=== PATIENT | male | born 1965 | race Caucasian/White ===

== ENCOUNTER 2019-03-12 08:45 | Outpatient (CLI) | payer OTHER, SELFPAY ==
--- NOTE | 2019-03-12 15:44 | WPDSIXMINUTE ---
Six Minute Walk DATE OF SERVICE: 03/12/2019 REQUESTING: Dr. Marquez REASON FOR TESTING: Exertional dyspnea SIX MINUTE WALK This test was conducted per ATS guidelines. Initial saturation was 96% and pulse was 109. There was no desaturation while walking 6 minutes. The pulse decreased to the 60 range briefly, then returned to the 110s. Distance walked was 700 feet/213 meters without stopping. IMPRESSION: Normal walk study without need for supplemental oxygen. Resting tachycardia is present, and maximum heart rate was 124. Distance walked is less than expected for age. Karissa Marquez MD Niox is 7 ppb, normal. No evidence of increased airway inflammation.
== END 2019-03-12 08:46 | disposition home or self-care (01) ==
PROVIDERS: PCP Family Medicine; Visit Provider Internal Medicine Critical Care Medicine
DX: J44.9 Chronic obstructive pulmonary disease, unspecified (principal)
CPT/HCPCS: 94618; 95012

== ENCOUNTER 2019-04-12 07:53 | Outpatient (CLI) | payer OTHER, SELFPAY ==
[2019-04-12 08:16] LABS: Basophils Absolute Auto 0.1 K/mm3 (0.0-0.1); Basophils Percent Auto 0.5 % (0.2-1.2); Eosinophils Absolute Auto 0.4 K/mm3 (0-0.3); Eosinophils Percent Auto 4.2 % (0-4.4); Hematocrit 38.6 % (42.0-52.0); Hemoglobin 13.3 g/dL (14.0-18.0); Immature Granulocyte Absolute 0.04 K/mm3 (0.00-0.031); Immature Granulocyte Percent A 0.4 % (0-0.5); Lymphocytes Absolute Auto 2.07 K/mm3 (0.9-3.2); Lymphocytes Percent Auto 22.1 % (18.3-44.2); Mean Corpuscular HGB Conc 34.5 g/dl (32-36); Mean Corpuscular Hemoglobin 31.8 pg (26-34); Mean Corpuscular Volume 92.3 fl (80-100); Mean Platelet Volume 9.6 fl (7.4-10.4); Monocytes Absolute Auto 0.4 K/mm3 (0.1-0.6); Monocytes Percent Auto 4.6 % (2.6-8.5); Neutrophils Absolute Auto 6.4 K/mm3 (1.3-6.7); Neutrophils Percent Auto 68.2 % (45.5-73.1); Platelet Count Result 191 k/mm3 (150-375); Red Blood Count 4.18 M/mm3 (4.6-6.20); Red Cell Distribution Width 13.3 % (11.5-14.5); White Blood Count 9.4 K/mm3 (4.5-10.0)
[2019-04-12 08:30] LABS: Cholesterol 150 mg/dL (0-200); HDL Direct 34 mg/dL; Triglycerides 186 mg/dL (<150)
[2019-04-12 08:32] LABS: Alanine Aminotransferase 15 U/L (4-50); Albumin Level 4.3 g/dL (3.5-5.1); Alkaline Phosphatase 47 U/L (38-126); Aspartate Amino Transferase 17 U/L (17-59); Bilirubin,Total 0.6 mg/dL (0.2-1.3); Blood Urea Nitrogen 12 mg/dL (9-20); Calcium 9.4 mg/dL (8.4-10.2); Carbon Dioxide 24 mmol/L (22-30); Chloride 103 mmol/L (98-107); Estimated Glomerular Filt Rate > 60; Glucose 136 mg/dL (75-110); Potassium 3.9 mmol/L (3.4-5.0); Sodium 137 mmol/L (137-145)
[2019-04-12 08:45] LABS: LDL Cholesterol Direct 113 mg/dL
[2019-04-12 11:27] LABS: Hemoglobin A1C 6.1 % (<5.7)
== END 2019-04-12 07:54 | disposition home or self-care (01) ==
PROVIDERS: PCP Family Medicine; Visit Provider Internal Medicine Cardiovascular Disease
DX: D64.9 Anemia, unspecified (principal); E11.9 Type 2 diabetes mellitus without complications; E78.5 Hyperlipidemia, unspecified
CPT/HCPCS: 36415; 80053; 80061; 83036; 84443; 85025

== ENCOUNTER 2019-09-14 08:05 | Outpatient (CLI) | payer OTHER, SELFPAY ==
--- NOTE | ~2019-09-14 | US_ITS ---
EXAMINATION: US arterial ankle brachial ind DATE: 09/14/2019 08:45 INDICATION: Lower limb pain. Peripheral vascular disease risk factors of diabetes, hypercholesterolem ia, hypertension and smoking. TECHNIQUE: Segmental pressures and plethysmographic and Doppler waveforms of the brachial and lower e xtremity arteries were obtained. COMPARISON: None. FINDINGS: Right and left brachial artery pressures of 131 mm Hg and 142 mm Hg, respectively, are concordant (no rmal difference <= 30 mmHg). The right ankle-brachial index (LARRY) is 0.99 (normal >= 0.9-1.0). The right great toe-brachial index (TBI) is 0.86 (normal >= 0.65). Arterial Doppler waveforms are triphasic at the right posterior tibia l artery and biphasic at the right dorsalis pedis artery, both with brisk systolic upstrokes. The left LARRY is 1.06. The left TBI is 0.87. Arterial Doppler waveforms are biphasic with brisk systol ic upstrokes at both the left posterior tibial and dorsalis pedis arteries. IMPRESSION: 1. No significant arterial occlusive disease with normal bilateral ABIs and TBIs. Reviewed, dictated and finalized at location A. IMPRESSION: 1. No significant arterial occlusive disease with normal bilateral ABIs and TBI s.
== END 2019-09-14 08:06 | disposition home or self-care (01) ==
PROVIDERS: PCP Family Medicine; Visit Provider Family Medicine
DX: E11.9 Type 2 diabetes mellitus without complications (principal)
CPT/HCPCS: 93922

== ENCOUNTER 2019-10-23 07:34 | Outpatient (CLI) | payer OTHER, SELFPAY ==
[2019-10-23 07:58] LABS: Hematocrit 40.1 % (42.0-52.0); Mean Corpuscular HGB Conc 34.9 g/dl (32-36); Mean Corpuscular Hemoglobin 32.9 pg (26-34); Mean Corpuscular Volume 94.1 fl (80-100); Mean Platelet Volume 9.9 fl (7.4-10.4); Platelet Count Result 207 k/mm3 (150-375); Red Blood Count 4.26 M/mm3 (4.6-6.20); Red Cell Distribution Width 12.8 % (11.5-14.5); White Blood Count 10.5 K/mm3 (4.5-10.0)
[2019-10-23 08:13] LABS: Alanine Aminotransferase 17 U/L (4-50); Albumin Level 4.3 g/dL (3.5-5.1); Alkaline Phosphatase 45 U/L (38-126); Aspartate Amino Transferase 20 U/L (17-59); Bilirubin,Total 0.6 mg/dL (0.2-1.3)
== END 2019-10-23 07:35 | disposition home or self-care (01) ==
PROVIDERS: PCP Family Medicine
DX: F10.21 Alcohol dependence, in remission (principal); R74.8 Abnormal levels of other serum enzymes; R74.0 Nonspecific elevation of levels of transaminase and lactic acid dehydrogenase [LDH]
CPT/HCPCS: 36415; 80076; 82105; 85027

== ENCOUNTER 2019-11-19 07:17 | Outpatient (CLI) | payer OTHER, SELFPAY ==
--- NOTE | ~2019-11-19 | US_ITS ---
EXAMINATION: US right upper quadrant DATE: 11/19/2019 08:25 INDICATION: Elevated liver function tests TECHNIQUE: Multiple grayscale and Doppler ultrasound images of the abdomen were obtained. COMPARISON: 01/09/2018 FINDINGS: Bowel gas obscures visualization of the pancreas. The visualized portions of the pancreas a re unremarkable. The liver demonstrates increased echogenicity, heterogenous echotexture, and decreas ed through transmission. There is liver surface nodularity. Normal hepatopetal flow in the main rikki l vein. A stone is present in the nondistended gallbladder. There is no pericholecystic fluid. The ga llbladder wall thickness measures up to 7 mm. The normal common bile duct measures 4 mm. There was no sonographic Brown sign. IMPRESSION: 1. Liver surface nodularity, consistent with cirrhosis. 2. Cholelithiasis and mild gallbladder wall thickening without pericholecystic fluid or positive sono graphic Brown sign. Wall thickening likely reflects incomplete distention. Correlate for right upper quadrant tenderness and consider nuclear hepatobiliary scan if there is clinical concern for cholecy stitis. Reviewed, dictated and finalized at location A. IMPRESSION: 1. Liver surface nodularity, consistent with cirrhosis. 2. Cholelithiasis and mild gallbladder wall thickening without pericholecystic fluid or positive sonographic Brown sign. Wall thickening likely reflects inco mplete distention. Correlate for right upper quadrant tenderness and consider n uclear hepatobiliary scan if there is clinical concern for cholecystitis.
== END 2019-11-19 07:18 | disposition home or self-care (01) ==
PROVIDERS: PCP Family Medicine
DX: R74.8 Abnormal levels of other serum enzymes (principal); F10.21 Alcohol dependence, in remission; K76.9 Liver disease, unspecified; K80.20 Calculus of gallbladder without cholecystitis without obstruction
CPT/HCPCS: 76705

== ENCOUNTER 2020-01-14 10:02 | Outpatient (CLI) | payer OTHER, SELFPAY ==
--- NOTE | ~2020-01-14 | MR_ITS ---
EXAMINATION: MR brain/brain stem wo/w con DATE: 01/14/2020 11:07 INDICATION: Colloid cyst of the third ventricle. Headache. TECHNIQUE: Magnetic resonance imaging (MRI) of the brain and brainstem was performed without and with 20 mL MultiHance intravenous contrast. Sequences included sagittal and axial T1-weighted FSE, axial diffusion-weighted FS EPI, axial T2*-weighted GRE, axial T2-weighted FLAIR Propeller, and axial T2-we ighted Propeller. Postcontrast sequences included axial, sagittal, and coronal T1-weighted FSE. Appar ent diffusion coefficient (ADC) maps were created. COMPARISON: Head CT 10/10/2018 FINDINGS: There is a 2.5 x 1.5 cm arachnoid cyst posterior to right cerebellar hemisphere. There is a 5 mm nonenhancing mass in the anterior third ventricle. There are scattered areas of nonspecific inc reased T2-weighted signal intensity in the cerebral white matter, which is within normal limits for t he patient's age. There is no acute ischemic infarct or intracranial hemorrhage. The ventricles are n ormal in size. The orbits are normal. There is mucosal thickening in the paranasal sinuses. The masto id air cells are normal. IMPRESSION: 1. Stable 5 mm nonenhancing mass in the anterior third ventricle, consistent with a colloid cyst. Reviewed, dictated and finalized at location B. 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 Stable 5 mm nonenhancing mass in the anterior third ventricle, consistent wi th a colloid cyst.
[2020-01-14 10:40] LABS: Estimated Glomerular Filt Rate > 60
== END 2020-01-14 10:03 | disposition home or self-care (01) ==
LOC: ANHIMG 10:09
PROVIDERS: PCP Family Medicine
DX: Q04.6 Congenital cerebral cysts (principal)
CPT/HCPCS: 70553; A9577

== ENCOUNTER 2020-07-23 09:08 | Outpatient (CLI) | payer OTHER, SELFPAY ==
--- NOTE | ~2020-07-23 | US_ITS ---
US right upper quadrant INDICATION: Cirrhosis PROCEDURE: Realtime right upper abdominal ultrasound. COMPARISON: No prior studies for comparison. FINDINGS: The pancreas is normal without focal mass or pancreatic ductal dilation. Liver echotexture is increased, consistent with fatty infiltration. There is normal directional flow in the portal ve in. There is a gallstone with gallbladder wall thickening Common bile duct measures 3.5 mm. No sonograp hic Brown's sign. Right renal echotexture is normal without hydronephrosis, contour deforming mass o r renal stone. Spleen is upper normal measuring 12.5 cm. IMPRESSION: 1: Cholelithiasis with gallbladder wall thickening. Consider cholecystitis in the appropriate clinica l setting. 2: Hepatic steatosis. Reviewed, dictated and finalized at location A. IMPRESSION: 1: Cholelithiasis with gallbladder wall thickening. Consider cholecystitis in t he appropriate clinical setting. 2: Hepatic steatosis.
== END 2020-07-23 09:09 | disposition home or self-care (01) ==
LOC: ANHIMG 09:10
PROVIDERS: PCP Family Medicine; Visit Provider Internal Medicine Gastroenterology
DX: K76.0 Fatty (change of) liver, not elsewhere classified (principal); K80.20 Calculus of gallbladder without cholecystitis without obstruction
CPT/HCPCS: 76705

== ENCOUNTER 2020-09-16 10:47 | Outpatient (CLI) | payer OTHER, SELFPAY ==
[2020-09-16 11:41] LABS: Hematocrit 40.6 % (42.0-52.0); Hemoglobin 13.9 g/dL (14.0-18.0); Mean Corpuscular HGB Conc 34.2 g/dl (32-36); Mean Corpuscular Hemoglobin 32.7 pg (26-34); Mean Corpuscular Volume 95.5 fl (80-100); Mean Platelet Volume 9.5 fl (7.4-10.4); Platelet Count Result 190 k/mm3 (150-375); Red Blood Count 4.25 M/mm3 (4.6-6.20); Red Cell Distribution Width 13.2 % (11.5-14.5); White Blood Count 11.8 K/mm3 (4.5-10.0)
[2020-09-16 11:52] LABS: Alanine Aminotransferase 17 U/L (4-50); Albumin Level 4.5 g/dL (3.5-5.1); Alkaline Phosphatase 45 U/L (38-126); Aspartate Amino Transferase 22 U/L (17-59); Bilirubin,Total 0.5 mg/dL (0.2-1.3)
[2020-09-16 11:58] LABS: INR 1.5; Prothrombin Time 17.5 Seconds (11.1-14.7)
[2020-09-20 21:43] LABS: Alpha Fetoprotein Tumor Marker 4.2 ng/mL (<6.1)
== END 2020-09-16 10:48 | disposition home or self-care (01) ==
LOC: ANHLAB 10:52
PROVIDERS: PCP Family Medicine; Referring Provider Internal Medicine Cardiovascular Disease; Visit Provider Nurse Practitioner Family
DX: I48.91 Unspecified atrial fibrillation (principal); R93.2 Abnormal findings on diagnostic imaging of liver and biliary tract; K70.30 Alcoholic cirrhosis of liver without ascites
CPT/HCPCS: 36415; 80076; 82105; 85027; 85610

== ENCOUNTER 2020-09-24 08:18 | Outpatient (CLI) | payer OTHER, SELFPAY ==
--- NOTE | ~2020-09-24 | NM_ITS ---
HEPATOBILIARY SCAN Procedure: Hepatobiliary scan performed following IV administration 4.7 mCi Tc 99m Choletec. At 60 m inutes 2.6 mcg CCK administered IV for evaluation of gallbladder ejection fraction. Indication:Ultrasound dated 07/23/2020 Comparison: None Findings: There is normal radiotracer uptake in the liver parenchyma with prompt excretion into the b iliary tract. Gallbladder visualized at 15 minutes. Small bowel visualized at 35 minutes. Normal g allbladder ejection fraction measures 54% (normal 10-90%, but most patients with gallbladder dysfunct ion have GBEF of less than 35%) Impression: 1: Normal hepatobiliary scan. Reviewed, dictated and finalized at location A. Impression: 1: Normal hepatobiliary scan.
== END 2020-09-24 08:19 | disposition home or self-care (01) ==
PROVIDERS: PCP Family Medicine; Visit Provider Nurse Practitioner Family
DX: R93.3 Abnormal findings on diagnostic imaging of other parts of digestive tract (principal)
CPT/HCPCS: 36415; 78227; 85610; A9537; J2805

== ENCOUNTER 2020-12-18 07:45 | Outpatient (RCR) | payer OTHER, SELFPAY ==
[2020-09-24 11:36] LABS: INR 1.4
[2020-10-01 08:50] LABS: INR 1.4; Prothrombin Time 16.9 Seconds (11.1-14.7)
[2020-10-08 08:25] LABS: INR 1.6; Prothrombin Time 18.3 Seconds (11.1-14.7)
[2020-10-15 08:12] LABS: INR 2.2; Prothrombin Time 24.1 Seconds (11.1-14.7)
[2020-10-27 10:19] LABS: INR 2.2; Prothrombin Time 23.7 Seconds (11.1-14.7)
[2020-11-20 08:20] LABS: INR 1.8; Prothrombin Time 20.4 Seconds (11.1-14.7)
[2020-11-26 09:14] LABS: INR 2.3; Prothrombin Time 24.9 Seconds (11.1-14.7)
[2020-12-18 08:25] LABS: INR 2.3; Prothrombin Time 25.1 Seconds (11.1-14.7)
== END 2020-12-23 23:59 | disposition home or self-care (01) ==
LOC: ANHLAB 07:45
PROVIDERS: PCP Family Medicine; Visit Provider Internal Medicine Cardiovascular Disease
DX: I48.91 Unspecified atrial fibrillation (principal)
CPT/HCPCS: 36415; 85610

== ENCOUNTER 2021-04-01 09:07 | Outpatient (RCR) | payer OTHER, SELFPAY ==
[2021-01-08 08:55] LABS: Prothrombin Time 30.3 Seconds (11.1-14.7)
[2021-01-22 10:12] LABS: INR 2.6
[2021-02-12 10:19] LABS: INR 2.8; Prothrombin Time 28.8 Seconds (11.1-14.7)
[2021-02-27 12:01] LABS: INR 3.9; Prothrombin Time 37.1 Seconds (11.1-14.7)
[2021-03-14 12:53] LABS: INR 1.7; Prothrombin Time 19.4 Seconds (11.1-14.7)
[2021-03-25 08:52] LABS: INR 2.7; Prothrombin Time 27.7 Seconds (11.1-14.7)
[2021-04-01 09:53] LABS: INR 2.3; Prothrombin Time 24.1 Seconds (11.1-14.7)
== END 2021-04-08 23:59 | disposition home or self-care (01) ==
LOC: ANHLAB 09:07
PROVIDERS: PCP Family Medicine; Visit Provider Internal Medicine Cardiovascular Disease
DX: I48.91 Unspecified atrial fibrillation (principal)
CPT/HCPCS: 36415; 85610

== ENCOUNTER 2021-04-01 09:11 | Outpatient (CLI) | payer OTHER, SELFPAY ==
[2021-04-01 10:00] LABS: Hemoglobin A1C 5.8 % (<5.7)
[2021-04-01 10:01] LABS: Cholesterol 179 mg/dL (0-200); HDL Direct 27 mg/dL; Triglycerides 183 mg/dL (<150)
[2021-04-01 10:12] LABS: LDL Cholesterol Direct 120 mg/dL
[2021-04-01 10:31] LABS: Prostate Specific Antigen 1.4 ng/mL (< OR = 4.0)
== END 2021-04-01 09:12 | disposition home or self-care (01) ==
PROVIDERS: PCP Family Medicine; Referring Provider Nurse Practitioner Family; Visit Provider Family Medicine
DX: Z12.5 Encounter for screening for malignant neoplasm of prostate (principal); E11.9 Type 2 diabetes mellitus without complications; F10.21 Alcohol dependence, in remission; R74.8 Abnormal levels of other serum enzymes; K74.60 Unspecified cirrhosis of liver
CPT/HCPCS: 36415; 80061; 83036; 84153; 84443; 85610; G0103

== ENCOUNTER 2021-06-09 08:37 | Outpatient (CLI) | payer OTHER, SELFPAY ==
--- NOTE | ~2021-06-09 | US_ITS ---
EXAMINATION: US right upper quadrant DATE: 06/09/2021 09:15 INDICATION: Elevated liver function tests, alcohol abuse, cirrhosis TECHNIQUE: Multiple grayscale and Doppler ultrasound images of the abdomen were obtained. COMPARISON: 07/23/2020 FINDINGS: Bowel gas obscures visualization of the pancreas. The visualized portions of the pancreas a re unremarkable. The liver demonstrates increased echogenicity, heterogenous echotexture, and decreas ed through transmission. There is nodularity of the liver surface. Normal hepatopetal flow in the юлия n portal vein. A stone is present in the nondistended gallbladder. Mild wall thickening of the gallbl adder likely relates to chronic liver disease. The normal common bile duct measures 5 mm. There was n o sonographic Brown sign. IMPRESSION: 1. Cirrhosis. 2. Cholelithiasis. Reviewed, dictated and finalized at location A.
== END 2021-06-09 08:38 | disposition home or self-care (01) ==
PROVIDERS: PCP Family Medicine; Visit Provider Nurse Practitioner Family
DX: R79.89 Other specified abnormal findings of blood chemistry (principal); R74.8 Abnormal levels of other serum enzymes; K74.60 Unspecified cirrhosis of liver; K80.20 Calculus of gallbladder without cholecystitis without obstruction; F10.21 Alcohol dependence, in remission
CPT/HCPCS: 76705

== ENCOUNTER 2021-07-08 11:39 | Outpatient (RCR) | payer OTHER, SELFPAY ==
[2021-04-15 10:49] LABS: INR 1.8; Prothrombin Time 20.5 Seconds (11.1-14.7)
[2021-04-30 09:31] LABS: INR 2.3; Prothrombin Time 24.3 Seconds (11.1-14.7)
[2021-05-21 08:49] LABS: INR 1.1; Prothrombin Time 14.2 Seconds (11.1-14.7)
[2021-06-03 10:00] LABS: INR 2.1; Prothrombin Time 22.7 Seconds (11.1-14.7)
[2021-06-23 09:44] LABS: Hematocrit 42.7 % (42.0-52.0); Hemoglobin 14.6 g/dL (14.0-18.0); Mean Corpuscular HGB Conc 34.2 g/dl (32-36); Mean Corpuscular Hemoglobin 32.7 pg (26-34); Mean Corpuscular Volume 95.5 fl (80-100); Mean Platelet Volume 10.2 fl (7.4-10.4); Platelet Count Result 257 k/mm3 (150-375); Red Blood Count 4.47 M/mm3 (4.6-6.20); Red Cell Distribution Width 13.1 % (11.5-14.5); White Blood Count 11.7 K/mm3 (4.5-10.0)
[2021-06-23 09:54] LABS: INR 1.4; Prothrombin Time 16.4 Seconds (11.1-14.7)
[2021-06-23 10:00] LABS: Alanine Aminotransferase 15 U/L (6-50); Albumin Level 4.4 g/dL (3.5-5.1); Alkaline Phosphatase 51 U/L (38-126); Aspartate Amino Transferase 18 U/L (17-59); Bilirubin,Total 0.5 mg/dL (0.2-1.3)
[2021-07-02 12:04] LABS: INR 1.7; Prothrombin Time 19.2 Seconds (11.1-14.7)
[2021-07-08 12:22] LABS: Prothrombin Time 21.9 Seconds (11.1-14.7)
== END 2021-07-14 23:59 | disposition home or self-care (01) ==
LOC: ANHLAB 11:39
PROVIDERS: PCP Family Medicine; Referring Provider Internal Medicine Gastroenterology; Visit Provider Internal Medicine Cardiovascular Disease
DX: I48.91 Unspecified atrial fibrillation (principal)
CPT/HCPCS: 36415; 80076; 82105; 85027; 85610

== ENCOUNTER 2021-08-21 10:26 | Outpatient (RCR) | payer OTHER, SELFPAY ==
[2021-07-24 10:59] LABS: INR 1.8; Prothrombin Time 20.6 Seconds (11.1-14.7)
[2021-08-07 10:38] LABS: INR 1.1; Prothrombin Time 13.7 Seconds (11.1-14.7)
[2021-08-14 11:18] LABS: INR 1.7; Prothrombin Time 19.6 Seconds (11.1-14.7)
[2021-08-21 11:02] LABS: INR 2.3; Prothrombin Time 24.3 Seconds (11.1-14.7)
== END 2021-10-22 23:59 | disposition home or self-care (01) ==
LOC: ANHLAB 10:26
PROVIDERS: PCP Family Medicine; Visit Provider Internal Medicine Cardiovascular Disease
DX: I48.91 Unspecified atrial fibrillation (principal)
CPT/HCPCS: 36415; 85610

== ENCOUNTER 2021-09-02 07:51 | Outpatient (CLI) | payer OTHER, SELFPAY ==
[2021-09-02 09:22] LABS: Alanine Aminotransferase 13 U/L (6-50); Albumin Level 4.3 g/dL (3.5-5.1); Alkaline Phosphatase 49 U/L (38-126); Anion Gap 10 mmol/L (8-16); Aspartate Amino Transferase 17 U/L (17-59); Bilirubin,Total 0.7 mg/dL (0.2-1.3); Blood Urea Nitrogen 9 mg/dL (9-20); Calcium 9.6 mg/dL (8.4-10.2); Carbon Dioxide 24 mmol/L (22-30); Chloride 104 mmol/L (98-107); Cholesterol 169 mg/dL (0-200); Estimated Glomerular Filt Rate > 60; Glucose 109 mg/dL (65-110); HDL Direct 28 mg/dL; Sodium 138 mmol/L (137-145); Triglycerides 180 mg/dL (<150)
[2021-09-02 09:33] LABS: LDL Cholesterol Direct 98 mg/dL
== END 2021-09-02 07:52 | disposition home or self-care (01) ==
LOC: ANHLAB 07:52
PROVIDERS: PCP Family Medicine; Visit Provider Internal Medicine Cardiovascular Disease
DX: E78.5 Hyperlipidemia, unspecified (principal)
CPT/HCPCS: 36415; 80053; 80061

== ENCOUNTER 2021-09-25 10:38 | Outpatient (CLI) | payer OTHER, SELFPAY ==
[2021-09-25 11:25] LABS: Hemoglobin A1C 5.7 % (<5.7)
[2021-09-25 11:58] LABS: Creatinine Urine 197.8 mg/dL
[2021-09-25 12:02] LABS: MALB Creatinine Ratio 55.6 mg/g (0-30)
== END 2021-09-25 10:39 | disposition home or self-care (01) ==
LOC: ANHLAB 10:40
PROVIDERS: PCP Family Medicine; Visit Provider Family Medicine
DX: E11.9 Type 2 diabetes mellitus without complications (principal)
CPT/HCPCS: 36415; 82043; 83036; 85610

== ENCOUNTER 2021-12-09 11:58 | Outpatient (RCR) | payer OTHER, SELFPAY ==
[2021-09-18 11:01] LABS: INR 3.7; Prothrombin Time 35.2 Seconds (11.1-14.7)
[2021-09-25 11:29] LABS: INR 2.2; Prothrombin Time 23.5 Seconds (11.1-14.7)
[2021-10-13 14:25] LABS: Hematocrit 42.3 % (42.0-52.0); Hemoglobin 14.7 g/dL (14.0-18.0); Mean Corpuscular HGB Conc 34.8 g/dl (32-36); Mean Corpuscular Hemoglobin 33.8 pg (26-34); Mean Corpuscular Volume 97.2 fl (80-100); Mean Platelet Volume 9.3 fl (7.4-10.4); Platelet Count Result 259 k/mm3 (150-375); Red Blood Count 4.35 M/mm3 (4.6-6.20); Red Cell Distribution Width 13.5 % (11.5-14.5); White Blood Count 15.3 K/mm3 (4.5-10.0)
[2021-10-13 14:34] LABS: Alanine Aminotransferase 13 U/L (6-50); Albumin Level 4.5 g/dL (3.5-5.1); Alkaline Phosphatase 47 U/L (38-126); Aspartate Amino Transferase 19 U/L (17-59); Bilirubin,Total 0.6 mg/dL (0.2-1.3)
[2021-10-13 14:38] LABS: Prothrombin Time 22.3 Seconds (11.1-14.7)
[2021-10-17 17:47] LABS: Alpha Fetoprotein Tumor Marker 3.7 ng/mL (<6.1)
[2021-11-06 11:21] LABS: INR 2.3; Prothrombin Time 24.8 Seconds (11.1-14.7)
[2021-12-09 12:43] LABS: INR 2.1; Prothrombin Time 22.5 Seconds (11.1-14.7)
== END 2021-12-17 23:59 | disposition home or self-care (01) ==
LOC: ANHLAB 11:58
PROVIDERS: PCP Family Medicine; Visit Provider Internal Medicine Cardiovascular Disease
DX: Z51.81 Encounter for therapeutic drug level monitoring (principal); Z79.01 Long term (current) use of anticoagulants
CPT/HCPCS: 36415; 80076; 82105; 85027; 85610

== ENCOUNTER 2021-12-09 11:59 | Outpatient (CLI) | payer OTHER, SELFPAY ==
[2021-12-09 12:31] LABS: Hematocrit 42.4 % (42.0-52.0); Hemoglobin 14.6 g/dL (14.0-18.0); Mean Corpuscular HGB Conc 34.4 g/dl (32-36); Mean Corpuscular Hemoglobin 33.6 pg (26-34); Mean Corpuscular Volume 97.5 fl (80-100); Mean Platelet Volume 9.6 fl (7.4-10.4); Platelet Count Result 247 k/mm3 (150-375); Red Blood Count 4.35 M/mm3 (4.6-6.20); Red Cell Distribution Width 12.6 % (11.5-14.5); White Blood Count 11.7 K/mm3 (4.5-10.0)
[2021-12-09 12:42] LABS: Anion Gap 12 mmol/L (8-16); Blood Urea Nitrogen 10 mg/dL (9-20); Calcium 9.2 mg/dL (8.4-10.2); Carbon Dioxide 22 mmol/L (22-30); Chloride 103 mmol/L (98-107); Estimated Glomerular Filt Rate > 60; Glucose 127 mg/dL (65-110); Potassium 3.8 mmol/L (3.4-5.0); Sodium 137 mmol/L (137-145)
== END 2021-12-09 12:00 | disposition home or self-care (01) ==
PROVIDERS: PCP Family Medicine; Visit Provider Internal Medicine Gastroenterology
DX: K70.30 Alcoholic cirrhosis of liver without ascites (principal)
CPT/HCPCS: 36415; 80048; 85027; 85610

== ENCOUNTER 2022-03-05 08:29 | Outpatient (RCR) | payer OTHER, SELFPAY ==
[2021-12-30 10:53] LABS: INR 2.4; Prothrombin Time 25.5 Seconds (11.1-14.7)
[2022-01-26 08:57] LABS: INR 2.1; Prothrombin Time 23.2 Seconds (11.1-14.7)
[2022-03-05 09:54] LABS: INR 1.7; Prothrombin Time 19.7 Seconds (11.1-14.7)
== END 2022-03-30 23:59 | disposition home or self-care (01) ==
LOC: ANHLAB 08:29
PROVIDERS: PCP Family Medicine; Visit Provider Internal Medicine Cardiovascular Disease
DX: Z51.81 Encounter for therapeutic drug level monitoring (principal); Z79.01 Long term (current) use of anticoagulants
CPT/HCPCS: 36415; 85610

== ENCOUNTER 2022-03-10 12:02 | Outpatient (CLI) | payer OTHER, SELFPAY ==
--- NOTE | ~2022-03-10 | CT_ITS ---
EXAMINATION:CT lung screening DATE: 03/10/2022 12:07 INDICATION: Tobacco use. Current smoker with 35 pack year history. TECHNIQUE: Computed tomography (CT) of the chest was performed without intravenous contrast. Automate d exposure control and iterative reconstruction technique were employed. The dose-length product (DLP ) was 418.64 mGy-cm. COMPARISON: Chest CT 08/08/2014 FINDINGS: There is mild emphysema. There is mild atelectasis bilaterally. No pleural effusion. The he art size is normal. There are coronary artery calcifications. No pericardial effusion. There are is a gallstone in the gallbladder, which is normal in size. There is a 1.7 cm mass in the right perinephr ic space. There are multiple old healed left rib fractures. There are bridging endplate osteophytes a t multiple levels in the spine, consistent with diffuse idiopathic skeletal hyperostosis (DISH). IMPRESSION: 1. Lung-RADS category 2: Benign appearance or behavior. Continue annual screening with noncontrast lo w-dose chest CT in 12 months. 2. 1.7 cm mass in the right perinephric space, increased from 0.9 cm on 02/10/17. The differential diag nosis includes benign mass such as peripheral nerve sheath tumor or venous malformation and malignanc y such as sarcoma. Consider CT-guided biopsy. Reviewed, dictated and finalized at location A. 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 Lung-RADS category 2: Benign appearance or behavior. Continue annual screeni ng with noncontrast low-dose chest CT in 12 months. 2. 1.7 cm mass in the right perinephric space, increased from 0.9 cm on 02/10/17. The differential diagnosis includes benign mass such as peripheral nerve sheat h tumor or venous malformation and malignancy such as sarcoma. Consider CT-guid ed biopsy.
== END 2022-03-10 12:03 | disposition home or self-care (01) ==
PROVIDERS: PCP Family Medicine; Visit Provider Nurse Practitioner Family
DX: Z12.2 Encounter for screening for malignant neoplasm of respiratory organs (principal); Z87.891 Personal history of nicotine dependence
CPT/HCPCS: 71271

== ENCOUNTER 2022-03-24 01:31 | Outpatient (CLI) | payer OTHER, SELFPAY ==
[2022-03-23 13:08] VITALS: BMI 42.4
--- NOTE | 2022-03-23 13:08 | PC.NURSE ---
Pre Radiology instructions Report to the outpatient hospital for special care AT 0900 on date 03/24/22. Procedure Time: 1100. YOU MAY BE MONITORED AT HOSPITAL FOR UP TO 4 HOURS AFTER YOUR PROCEDURE. 1-2 visitors will be allowed to accompany the patient into the hospital. ?The visitor will be instructed to remain with patient at all times or MAY BE ASKED TO leave the building due to restrictions.? We will allow the visitor to come back to the postoperative area when patient is ready.? NO children visitors allowed at this time. You and your visitor will be asked to self-screen and do not enter if you have any COVID symptoms. A mask is OPTIONAL within the hospital. Patients are to have no food or drink 6 hours prior to procedure time Driving will be restricted after the procedure, you must have a person to drive you home. Labs will be drawn in preop area and once reviewed, you will be taken to radiology area for procedure. When the procedure is completed, you will be taken to outpatient where you will be monitored for several hours. You may have one visitor in this area. Other than holding anti-coagulants, patient may take other medication(s) as scheduled. Prior to your appointment date patients are instructed to hold anti-coagulants after discussing with ordering provider to stop. If unable to discontinue anti-coagulants please notify radiologist. ? No aspirin or warfarin (Coumadin) for 7 days prior to the procedure. ? No clopidogrel (Plavix), ticagrelor (Brilinta), prasugrel (Effient) or dabigatran (Pradaxa) for 5 days prior to the procedure. ? No rivaroxaban (Xarelto), apixaban (Eliquis), dipyridamole (Aggrenox or Persantine) or cilostazol (Pletal) for 2 days prior to the procedure. Medications to discontinue per physician: WARFARIN Date to take last dose: PT STATES WAS TOLD TO STOP 1 WEEK PRIOR TO PROCEDURE Please leave all valuables, including medications, at home the day of procedure. The hospital will not accept responsibility for valuables. Wear comfortable, loose fitting clothing.? Follow any additional instructions given to you from ordering provider. Telephone instructions given to PT - CHRIS CRUZ and asked if any additional questions and then verbalized understanding. Patient advised to call scheduling provider office or registration scheduling [phone] if any additional questions.
--- NOTE | ~2022-03-24 | CT_ITS ---
EXAMINATION: CT biopsy abdomen percutaneous DATE: 03/24/2022 11:33 INDICATION: Right retroperitoneal mass. TECHNIQUE: The procedure including the risks, benefits, and alternatives was discussed with the patie nt. Risks discussed included bleeding and infection. The patient verbalized understanding of the risk s and agreed to proceed. The skin overlying the right retroperitoneum was prepped and draped in usua l sterile fashion. Anesthetic was administered with 1% lidocaine subcutaneously. A 16 gauge outer n eedle was advanced under CT guidance to the mass. An 18 gauge core biopsy needle was then used to obt ain multiple core biopsy specimens. The mA was adjusted according to patient size. Iterative reconstr uction technique was employed. The dose-length product was 545.05 mGy-cm. The needle was removed and the entry site was cleaned and dressed. There were no immediate complications. FINDINGS: CT images demonstrate the outer needle tip adjacent to a 1.7 cm mass in the right perinephr ic space. IMPRESSION: 1. CT-guided core needle biopsy of a right retroperitoneal mass. Reviewed, dictated and finalized at location A. COVERER
[2022-03-24 09:07] VITALS: BP 132/95; PULSE 87; RESP 18; TEMP 36.2; O2SAT 100
[2022-03-24 09:23] LABS: Mean Platelet Volume 9.7 fl (7.4-10.4); Platelet Count Result 224 k/mm3 (150-375)
[2022-03-24 09:34] LABS: INR 1.2; Prothrombin Time 14.3 Seconds (11.1-14.7)
[2022-03-24 11:35] VITALS: BP 115/71; BP 132/95; PULSE 60; PULSE 87; RESP 18; O2SAT 100; O2SAT 96
[2022-03-24 11:52] LABS: Glucose Point of Care 103 mg/dl (65-105)
[2022-03-24 12:05] VITALS: BP 123/80; PULSE 60; RESP 18; O2SAT 96
[2022-03-24 12:20] VITALS: BP 124/78; PULSE 67; RESP 18; O2SAT 96
[2022-03-24 12:35] VITALS: BP 115/71; PULSE 65; RESP 18; O2SAT 98
== END 2022-03-24 12:55 | disposition home or self-care (01) ==
PROVIDERS: PCP Family Medicine; Referring Provider Nurse Practitioner Family; Visit Provider Radiology Diagnostic Radiology
PROC: BW20ZZZ Computerized Tomography (CT Scan) of Abdomen (ICD-10-PCS; CPT 77012; principal; 2022-03-24 11:00)
DX: R93.89 Abnormal findings on diagnostic imaging of other specified body structures (principal)
CPT/HCPCS: 36415; 49180; 77012; 82948; 85049; 85610; 88305

== ENCOUNTER 2022-04-20 10:39 | Outpatient (CLI) | payer OTHER, SELFPAY ==
[2022-04-20 11:21] LABS: Basophils Absolute Auto 0.1 K/mm3 (0.0-0.1); Basophils Percent Auto 0.6 % (0.2-1.2); Eosinophils Absolute Auto 0.6 K/mm3 (0-0.3); Eosinophils Percent Auto 5.1 % (0-4.4); Hematocrit 44.2 % (42.0-52.0); Hemoglobin 15.5 g/dL (14.0-18.0); Immature Granulocyte Absolute 0.04 K/mm3 (0.00-0.031); Immature Granulocyte Percent A 0.4 % (0-0.5); Lymphocytes Percent Auto 27.6 % (18.3-44.2); Mean Corpuscular HGB Conc 35.1 g/dl (32-36); Mean Corpuscular Hemoglobin 33.4 pg (26-34); Mean Corpuscular Volume 95.3 fl (80-100); Mean Platelet Volume 9.8 fl (7.4-10.4); Monocytes Absolute Auto 0.7 K/mm3 (0.1-0.6); Monocytes Percent Auto 6.5 % (2.6-8.5); Neutrophils Absolute Auto 6.5 K/mm3 (1.3-6.7); Neutrophils Percent Auto 59.8 % (45.5-73.1); Platelet Count Result 248 k/mm3 (150-375); Red Blood Count 4.64 M/mm3 (4.6-6.20); White Blood Count 10.9 K/mm3 (4.5-10.0)
[2022-04-20 11:37] LABS: Alanine Aminotransferase 16 U/L (6-50); Albumin Level 4.7 g/dL (3.5-5.1); Alkaline Phosphatase 50 U/L (38-126); Anion Gap 8 mmol/L (8-16); Aspartate Amino Transferase 18 U/L (17-59); Bilirubin,Total 0.7 mg/dL (0.2-1.3); Blood Urea Nitrogen 8 mg/dL (9-20); Calcium 9.4 mg/dL (8.4-10.2); Carbon Dioxide 22 mmol/L (22-30); Chloride 109 mmol/L (98-107); Estimated Glomerular Filt Rate > 60; Glucose 79 mg/dL (65-110); Lactate Dehydrogenase 129 U/L (120-246); Sodium 139 mmol/L (137-145)
[2022-04-26 17:07] LABS: Alpha Fetoprotein Tumor Marker 3.6 ng/mL (<6.1)
== END 2022-04-20 10:40 | disposition home or self-care (01) ==
LOC: ANHLAB 10:42
PROVIDERS: PCP Family Medicine; Visit Provider Internal Medicine Hematology & Oncology
DX: R19.00 Intra-abdominal and pelvic swelling, mass and lump, unspecified site (principal)
CPT/HCPCS: 36415; 80053; 82105; 83615; 85025; 88184

== ENCOUNTER 2022-05-13 09:13 | Outpatient (CLI) | payer OTHER, SELFPAY ==
--- NOTE | ~2022-05-13 | PE_ITS ---
EXAMINATION: PET skull to mid thigh DATE: 05/13/2022 11:25 INDICATION: Liposarcoma TECHNIQUE: Blood glucose level was 165 mg/dL. 10.181 mCi of 18-fluorodeoxyglucose (18-FDG) was admini stered i.v. Low dose computed tomography (CT) images were acquired from the base of the brain to the proximal thighs for attenuation correction and anatomic localization. Positron emission tomography (P ET) images were acquired in the same distribution beginning 71 minutes after injection. Images includ ing fused PET/CT images were reconstructed in axial, coronal, and sagittal planes. Automated exposure control technique was employed. The dose-length product was 1201.30mGy-cm. COMPARISON: Chest CT dated 03/10/[address] abdomen and pelvis dated 02/10/2017 FINDINGS: Head/neck: There is symmetric increased activity in the oral cavity, lingual tonsils, laryngeal muscles and ocul ar muscles without CT correlate, likely physiologic. Asymmetric FDG avid 10 x 8 mm nodule in the righ t parotid gland with maximal SUV of 7.0 which could represent a lymph node or parotid neoplasm either benign or malignant. No FDG uptake associated with a 1.5 cm subdermal likely sebaceous/epidermoid cy st at the right posterior base of the neck. No other pathologically enlarged cervical lymphadenopathy or suspicious foci of increased FDG uptake in the visualized head or neck. Chest: Minimal atelectasis at the posterior left lung base. No suspicious pulmonary nodules, pneumonia, pulm onary edema, pleural effusion or pneumothorax. Heart size is normal. Small amount of atherosclerotic coronary artery calcification. No pericardial effusion. No pathologically enlarged or abnormally FDG avid thoracic lymphadenopathy. Thoracic aorta is normal in caliber. Abdomen/pelvis/proximal thighs: There is no abnormal FDG uptake or residual discernible soft tissue density at the site of a prior 1. 7 cm biopsied soft tissue density nodule in the right retroperitoneal fat situated between the upper pole of the right kidney and the liver. This suggests a likely inflammatory etiology. Physiologic suzan al accumulation and excretion of FDG activity in the kidneys, bladder and along portions of ureters. Normal degree and heterogenous pattern of increased uptake throughout the liver without radiologic co rrelate or dominant FDG avid lesion. Subtle calcified gallstone at the neck of the otherwise normal g allbladder. The pancreas, spleen and bilateral adrenal glands are normal. Mild to moderate uptake sca ttered throughout the bowels without radiologic correlate, also likely physiologic. Normal appendix. No other abnormal foci of increased FDG uptake or pathologically enlarged lymphadenopathy in the abdo men, pelvis or proximal thighs. Musculoskeletal: No suspicious lytic, blastic or FDG avid bone lesions. IMPRESSION: 1. The previously biopsied 1.5 cm nodular soft tissue density in the retroperitoneal fat cephalad to the right kidney is no longer visualized suggesting an inflammatory etiology. No abnormal FDG uptake in the region of the biopsy to suggest malignancy. 2. Mild to moderate uptake associated with a 10 x 8 mm right parotid lesion most likely a reactive in traparotid lymph node although differential would include parotid neoplasm either benign or malignant . Reviewed, dictated and finalized at location A. IMPRESSION: 1. The previously biopsied 1.5 cm nodular soft tissue density in the retroperit gibson fat cephalad to the right kidney is no longer visualized suggesting an in flammatory etiology. No abnormal FDG uptake in the region of the biopsy to sugg est malignancy. 2. Mild to moderate uptake associated with a 10 x 8 mm right parotid lesion mos t likely a reactive intraparotid lymph node although differential
[2022-05-13 09:38] LABS: Glucose Point of Care 165 mg/dl (65-105)
== END 2022-05-13 09:14 | disposition home or self-care (01) ==
LOC: ANHIMG 09:15
PROVIDERS: PCP Family Medicine; Visit Provider Internal Medicine Hematology & Oncology
DX: C49.9 Malignant neoplasm of connective and soft tissue, unspecified (principal)
CPT/HCPCS: 78815; A9552

== ENCOUNTER 2022-05-20 08:46 | Outpatient (CLI) | payer OTHER, SELFPAY ==
--- NOTE | ~2022-05-20 | MR_ITS ---
EXAMINATION: MR brain/brain stem wo/w con DATE: 05/20/2022 09:50 INDICATION: Colloid cyst. TECHNIQUE: Magnetic resonance imaging (MRI) of the brain and brainstem was performed without and with 20 mL MultiHance intravenous contrast. COMPARISON: Brain MRI 01/14/2020, head CT 10/10/2018 FINDINGS: There is a 5 mm colloid cyst in the anterior third ventricle. There is no acute ischemic in farct or intracranial hemorrhage. There are scattered areas of nonspecific increased T2-weighted sign al intensity in the cerebral white matter, which is within normal limits for the patient's age. There is a 2.4 x 1.6 cm arachnoid cyst posterior to right cerebellum. The ventricles are normal in size. T here is mucosal thickening in the paranasal sinuses. The orbits are normal. The mastoid air cells are normal. IMPRESSION: 1. Stable 5 mm colloid cyst in the anterior third ventricle. Reviewed, dictated and finalized at location A.
== END 2022-05-20 08:47 | disposition home or self-care (01) ==
PROVIDERS: PCP Family Medicine; Visit Provider Neurological Surgery
DX: Q04.6 Congenital cerebral cysts (principal)
CPT/HCPCS: 70553; A9577

== ENCOUNTER 2022-06-23 10:34 | Outpatient (RCR) | payer OTHER, SELFPAY ==
[2022-04-05 11:43] LABS: INR 1.6; Prothrombin Time 18.7 Seconds (11.1-14.7)
[2022-04-20 11:34] LABS: INR 2.7; Prothrombin Time 27.8 Seconds (11.1-14.7)
[2022-05-04 10:07] LABS: INR 2.4; Prothrombin Time 25.6 Seconds (11.1-14.7)
[2022-05-26 11:46] LABS: INR 2.4
[2022-06-23 11:21] LABS: Prothrombin Time 34.1 Seconds (11.1-14.7)
== END 2022-07-04 23:59 | disposition home or self-care (01) ==
LOC: ANHLAB 10:34
PROVIDERS: PCP Family Medicine; Visit Provider Internal Medicine Cardiovascular Disease
DX: Z51.81 Encounter for therapeutic drug level monitoring (principal); Z79.01 Long term (current) use of anticoagulants
CPT/HCPCS: 36415; 80053; 82105; 83615; 85025; 85610; 88184

== ENCOUNTER 2022-08-24 13:40 | Outpatient (RCR) | payer OTHER, SELFPAY ==
[2022-07-13 11:25] LABS: INR 2.4; Prothrombin Time 27.7 Seconds (11.1-14.7)
[2022-08-24 14:30] LABS: INR 2.9; Prothrombin Time 32.1 Seconds (11.1-14.7)
== END 2022-10-11 23:59 | disposition home or self-care (01) ==
LOC: ANHLAB 13:40
PROVIDERS: PCP Family Medicine; Visit Provider Internal Medicine Cardiovascular Disease
DX: Z51.81 Encounter for therapeutic drug level monitoring (principal); Z79.01 Long term (current) use of anticoagulants
CPT/HCPCS: 36415; 85610

== ENCOUNTER 2022-09-13 09:55 | Outpatient (CLI) | payer OTHER, SELFPAY ==
[2022-09-13 11:01] LABS: Cholesterol 198 mg/dL (0-200); HDL Direct 39 mg/dL; Triglycerides 209 mg/dL (<150)
[2022-09-13 11:02] LABS: INR 2.4; Prothrombin Time 27.7 Seconds (11.1-14.7)
[2022-09-13 11:12] LABS: LDL Cholesterol Direct 110 mg/dL
== END 2022-09-13 09:56 | disposition home or self-care (01) ==
LOC: ANHLAB 10:00
PROVIDERS: PCP Family Medicine; Visit Provider Internal Medicine Cardiovascular Disease
DX: E78.5 Hyperlipidemia, unspecified (principal); I48.91 Unspecified atrial fibrillation
CPT/HCPCS: 36415; 80061; 85610

== ENCOUNTER 2022-09-21 10:26 | Outpatient (CLI) | payer OTHER, SELFPAY ==
--- NOTE | ~2022-09-21 | US_ITS ---
EXAMINATION: US right upper quadrant DATE: 09/21/2022 12:06 INDICATION: CIRRHOSIS TECHNIQUE: Multiple grayscale and Doppler ultrasound images of the right upper quadrant were obtained . COMPARISON: None available. FINDINGS: The visualized portions of the pancreas are normal. The liver is normal in echogenicity and echotexture. Nodular liver border. Normal hepatopetal flow in the main portal vein. Mobile shadowing foci with sludge in the gallbladder. The bladder wall thickening to 5 mm. The common bile duct measu res 7 mm. There was no sonographic Brown sign. IMPRESSION: Cirrhosis. Cholelithiasis. Gallbladder wall thickening, nonspecific finding in the presence of chroni c liver disease. Reviewed, dictated and finalized at location K. IMPRESSION: Cirrhosis. Cholelithiasis. Gallbladder wall thickening, nonspecific finding in the presence of chronic liver disease.
== END 2022-09-21 10:27 | disposition home or self-care (01) ==
LOC: ANHIMG 10:37
PROVIDERS: PCP Family Medicine; Visit Provider Internal Medicine Gastroenterology
DX: K74.60 Unspecified cirrhosis of liver (principal); K76.0 Fatty (change of) liver, not elsewhere classified; K80.20 Calculus of gallbladder without cholecystitis without obstruction
CPT/HCPCS: 76705

== ENCOUNTER 2022-10-05 11:44 | Outpatient (CLI) | payer OTHER, SELFPAY ==
[2022-10-05 13:29] LABS: Hematocrit 38.1 % (42.0-52.0); Mean Corpuscular HGB Conc 34.1 g/dl (32-36); Mean Corpuscular Hemoglobin 34.3 pg (26-34); Mean Corpuscular Volume 100.5 fl (80-100); Mean Platelet Volume 10.1 fl (7.4-10.4); Platelet Count Result 213 k/mm3 (150-375); Red Blood Count 3.79 M/mm3 (4.6-6.20); Red Cell Distribution Width 12.8 % (11.5-14.5); White Blood Count 10.7 K/mm3 (4.5-10.0)
[2022-10-05 13:41] LABS: INR 2.2; Prothrombin Time 25.8 Seconds (11.1-14.7)
[2022-10-05 13:42] LABS: Alanine Aminotransferase 16 U/L (6-50); Albumin Level 4.2 g/dL (3.5-5.1); Alkaline Phosphatase 40 U/L (38-126); Aspartate Amino Transferase 23 U/L (17-59); Bilirubin,Total 0.7 mg/dL (0.2-1.3)
[2022-10-12 14:18] LABS: Alpha Fetoprotein Tumor Marker 3.3 ng/mL (<6.1)
== END 2022-10-05 11:45 | disposition home or self-care (01) ==
PROVIDERS: PCP Family Medicine; Referring Provider Internal Medicine Cardiovascular Disease; Visit Provider Internal Medicine Gastroenterology
DX: K70.30 Alcoholic cirrhosis of liver without ascites (principal)
CPT/HCPCS: 36415; 80076; 82105; 85027; 85610

== ENCOUNTER 2023-03-08 11:04 | Outpatient (RCR) | payer OTHER, SELFPAY ==
[2022-12-08 09:54] LABS: INR 2.3; Prothrombin Time 27.5 Seconds (11.1-14.7)
[2023-01-12 10:21] LABS: INR 1.8; Prothrombin Time 21.9 Seconds (11.1-14.7)
[2023-02-09 12:54] LABS: INR 1.9; Prothrombin Time 22.9 Seconds (11.1-14.7)
[2023-03-08 11:30] LABS: INR 2.3; Prothrombin Time 26.6 Seconds (11.1-14.7)
== END 2023-03-08 23:59 | disposition home or self-care (01) ==
LOC: ANHLAB 11:04
PROVIDERS: PCP Family Medicine; Visit Provider Internal Medicine Cardiovascular Disease
DX: I48.91 Unspecified atrial fibrillation (principal)
CPT/HCPCS: 36415; 85610

== ENCOUNTER 2023-03-30 09:19 | Outpatient (CLI) | payer OTHER, SELFPAY ==
--- NOTE | ~2023-03-30 | CT_ITS ---
CT Scan of the Chest without Contrast: Clinical Indication: Lung cancer screening, personal history of nicotine dependence Technique: Contiguous sections were acquired throughout the chest without intravenous contrast. Dose reduction technique was used on this scan by utilizing automated exposure control and iterative recon struction technique. The dose-length product (DLP) was 317.70 mGy-cm. COMPARISON: 03/10/2022 Findings: There is no evidence of any significant mediastinal, hilar or axillary lymphadenopathy. The mediastin al soft tissues appear normal. There is no evidence of pleural or pericardial effusion. The lungs are clear. No pulmonary nodules or infiltrates are noted. Images through the upper abdomen reveal no abnormalities. Impression: Lung RADS 1: Negative. 12 month follow-up screening CT advised. Reviewed, dictated and finalized at location . H TESTER Impression: Lung RADS 1: Negative. 12 month follow-up screening CT advised.
== END 2023-03-30 09:20 | disposition home or self-care (01) ==
PROVIDERS: PCP Family Medicine; Visit Provider Physician Assistant
DX: Z12.2 Encounter for screening for malignant neoplasm of respiratory organs (principal); Z87.891 Personal history of nicotine dependence
CPT/HCPCS: 71271

== ENCOUNTER 2023-04-06 10:27 | Outpatient (CLI) | payer OTHER, SELFPAY ==
[2023-04-06 12:01] LABS: Alanine Aminotransferase 14 U/L (6-50); Albumin Level 4.6 g/dL (3.5-5.1); Alkaline Phosphatase 45 U/L (38-126); Aspartate Amino Transferase 22 U/L (17-59)
[2023-04-11 16:22] LABS: Alpha Fetoprotein Tumor Marker 2.7 ng/mL (<6.1)
== END 2023-04-06 10:28 | disposition home or self-care (01) ==
PROVIDERS: PCP Family Medicine; Visit Provider Internal Medicine Gastroenterology
DX: K70.30 Alcoholic cirrhosis of liver without ascites (principal)
CPT/HCPCS: 36415; 80076; 82105

== ENCOUNTER 2023-05-17 09:42 | Outpatient (CLI) | payer OTHER, SELFPAY ==
--- NOTE | ~2023-05-17 | US_ITS ---
US right upper quadrant INDICATION: Cirrhosis PROCEDURE: Realtime right upper abdominal ultrasound. COMPARISON: No prior studies for comparison. FINDINGS: The pancreas is normal without focal mass or pancreatic ductal dilation. Liver echotexture is normal without focal mass or intrahepatic biliary dilatation. There is normal directional flow i n the portal vein. There are gallstones. Mild gallbladder wall thickening measuring 0.3 cm. Common bile duct measures 6 .8 mm. No sonographic Brown's sign. IMPRESSION: 1: Cholelithiasis with mild gallbladder wall thickening. Reviewed, dictated and finalized at location A.
== END 2023-05-17 09:43 | disposition home or self-care (01) ==
PROVIDERS: PCP Family Medicine; Visit Provider Internal Medicine Gastroenterology
DX: K70.30 Alcoholic cirrhosis of liver without ascites (principal); K80.20 Calculus of gallbladder without cholecystitis without obstruction
CPT/HCPCS: 76705

== ENCOUNTER 2023-06-28 11:35 | Outpatient (RCR) | payer OTHER, SELFPAY ==
[2023-04-06 12:17] LABS: INR 1.7; Prothrombin Time 20.8 Seconds (11.1-14.7)
[2023-04-19 12:52] LABS: INR 2.1; Prothrombin Time 24.9 Seconds (11.1-14.7)
[2023-05-27 11:29] LABS: INR 1.8; Prothrombin Time 22.2 Seconds (11.1-14.7)
[2023-06-28 17:11] LABS: INR 1.6; Prothrombin Time 20.1 Seconds (11.1-14.7)
== END 2023-07-05 23:59 | disposition home or self-care (01) ==
LOC: ANHLAB 11:35
PROVIDERS: PCP Family Medicine; Visit Provider Internal Medicine Cardiovascular Disease
DX: I48.91 Unspecified atrial fibrillation (principal)
CPT/HCPCS: 36415; 80076; 82105; 85610

== ENCOUNTER 2023-07-14 11:33 | Outpatient (RCR) | payer OTHER, SELFPAY ==
[2023-07-14 12:12] LABS: INR 2.6; Prothrombin Time 28.9 Seconds (11.1-14.7)
== END 2023-09-28 10:15 | disposition home or self-care (01) ==
LOC: ANHLAB 11:33
PROVIDERS: PCP Nurse Practitioner Family; Visit Provider Internal Medicine Cardiovascular Disease
DX: I48.91 Unspecified atrial fibrillation (principal)
CPT/HCPCS: 36415; 85610

== ENCOUNTER 2023-10-12 10:17 | Outpatient (RCR) | payer OTHER, SELFPAY ==
[2023-08-23 12:49] LABS: INR 1.4
[2023-09-28 11:25] LABS: Prothrombin Time 31.3 Seconds (11.1-14.7)
[2023-10-12 11:06] LABS: INR 2.9; Prothrombin Time 30.7 Seconds (11.1-14.7)
== END 2023-11-21 23:59 | disposition home or self-care (01) ==
LOC: ANHLAB 10:17
PROVIDERS: PCP Nurse Practitioner Family; Visit Provider Internal Medicine Cardiovascular Disease
DX: J44.9 Chronic obstructive pulmonary disease, unspecified (principal)
CPT/HCPCS: 36415; 85610

== ENCOUNTER 2023-10-12 10:18 | Outpatient (CLI) | payer OTHER, SELFPAY ==
[2023-10-12 11:03] LABS: Alanine Aminotransferase 12 U/L (6-50); Albumin Level 4.4 g/dL (3.5-5.1); Alkaline Phosphatase 36 U/L (38-126); Anion Gap 9 mmol/L (4-12); Aspartate Amino Transferase 19 U/L (17-59); Bilirubin,Total 0.7 mg/dL (0.2-1.3); Blood Urea Nitrogen 15 mg/dL (9-20); Calcium 9.5 mg/dL (8.4-10.2); Carbon Dioxide 23 mmol/L (22-30); Chloride 105 mmol/L (98-107); Cholesterol 168 mg/dL (0-200); Estimated Glomerular Filt Rate 57; Glucose 115 mg/dL (65-110); HDL Direct 49 mg/dL; Sodium 137 mmol/L (137-145); Triglycerides 100 mg/dL (<150)
[2023-10-12 11:14] LABS: LDL Cholesterol Direct 92 mg/dL
== END 2023-10-12 10:19 | disposition home or self-care (01) ==
LOC: ANHLAB 10:20
PROVIDERS: PCP Nurse Practitioner Family; Visit Provider Internal Medicine Cardiovascular Disease
DX: E78.5 Hyperlipidemia, unspecified (principal)
CPT/HCPCS: 36415; 80053; 80061; 85610

== ENCOUNTER 2024-02-10 09:11 | Outpatient (RCR) | payer OTHER, SELFPAY ==
[2023-12-01 12:28] LABS: INR 2.6; Prothrombin Time 28.2 Seconds (11.1-14.7)
[2024-02-10 09:47] LABS: INR 1.7; Prothrombin Time 20.3 Seconds (11.1-14.7)
== END 2024-02-29 23:59 | disposition home or self-care (01) ==
LOC: ANHLAB 09:11
PROVIDERS: PCP Nurse Practitioner Family; Visit Provider Internal Medicine Cardiovascular Disease
DX: J44.9 Chronic obstructive pulmonary disease, unspecified (principal)
CPT/HCPCS: 36415; 85610

== ENCOUNTER 2024-04-02 10:18 | Outpatient (CLI) | payer OTHER, SELFPAY ==
--- NOTE | ~2024-04-02 | CT_ITS ---
CT Scan of the Chest without Contrast: Clinical Indication: Lung cancer screening, nicotine dependence Technique: Contiguous sections were acquired throughout the chest without intravenous contrast. Dose reduction technique was used on this scan by utilizing automated exposure control and iterative recon struction technique. The dose-length product (DLP) was 238.39 mGy-cm. COMPARISON: 03/30/2023 Findings: There is no evidence of any significant mediastinal, hilar or axillary lymphadenopathy. Coronary sari ry calcifications are present. There is no evidence of pleural or pericardial effusion. The lungs are clear. No pulmonary nodules or infiltrates are noted. Images through the upper abdomen reveal cholelithiasis. Impression: Lung RADS 1: Negative. 12 month follow-up screening CT advised. Reviewed, dictated and finalized at location . DIRECTOR Impression: Lung RADS 1: Negative. 12 month follow-up screening CT advised.
--- OUTSIDE RECORDS SUMMARY | 2024-04-02 11:35 | XMS_ITS | Clinical Summary ---
Author Organization [facility] Address [address] [place] [phone] Phone Care Team Providers Care Mortgage Loan Officer Name Role Phone Unavailable Primary Care Provider Unavailabl e Active Problems Problem Noted Date Diagnosed Date Hypo-osmolality and hyponatremia 08/18/2016 Essential (primary) hypertension 08/18/2016 Family History Medical History Relation Comments Kidney disease Neg Hx Kidney stone Neg Hx Social History Tobacco Use Types Packs/Day Years Used Date Smoking Tobacco: Heavy Smoker Alcohol Use Standard Drinks/Week Comments No 0 (1 standard drink = 0.6 oz pur e alcohol) Sex and Gender Information Value Date Recorded Sex Assigned at Not on file Gender Identity Not on file Sexual Orientation Not on file Last Filed Vital Signs Vital Sign Reading Time Taken Comments Blood Pressure 108/70 08/18/2016 12:01 AM CDT Pulse 84 08/18/2016 12:01 AM CDT Temperature 36.4 C (97.5 F) 08/18/2016 12:01 AM CDT Respiratory Rate - - Oxygen Saturation - - Inhaled Oxygen Concentration - - Weight 117 kg (259 lb) 08/18/2016 12:01 AM CDT Height 165.1 cm (5' 5 ) 08/18/2016 12:01 AM CDT Body Mass Index 43.1 08/18/2016 12:01 AM CDT Plan of Treatment Not on file
--- OUTSIDE RECORDS SUMMARY | 2024-04-02 11:35 | XMS_ITS | Patient Health Summary ---
Author Organization [facility] Address [address] [place] [address] Care Team Providers Care Tipple Oiler Name Role Phone Vik Lindquist MD Primary Care Provider [phone] Note from [facility] [place],non-owned Affiliates and Associated Physician Practices is amultiple site organization consisting of ambulatory clinics and hospital sitesin [place], [place], [place] and [place]. This disclosure is being madepursuant to the Care Everywhere program and may not contain all information available regarding this patient. Last updated 17.[facility] Allergies No known active allergies Medications * Be aware that medications may not be up to date on this document. Alwaysverify current medications with the patient. * metFORMIN (GLUCOPHAGE) 1000 MG tablet Take 1,000 mg by mouth 2 times daily with morning and evening meal * fish oil/omega-3 fatty acids (PROMEGA;CARDI-OMEGA 3) 1000 MG capsule Take 1 (one) capsule by mouth daily with food * citalopram (CELEXA) 20 MG tablet Take 20 mg by mouth once daily * albuterol HFA (PROVENTIL;VENTOLIN;PROAIR) 108 (90 Base) MCG/ACT inhaler (Started 10/13/2018) Inhale 2 (two) puffs by mouth every 4 hours as needed for Shortness of Breath or Wheezing * Blood Glucose Monitoring Suppl (ONE TOUCH ULTRA 2) w/Device KIT(Started 10/09/2018) TEST 2 TIMES A DAY * [employer] ULTRA TEST STRIPS test strip(Started 11/22/2018) * [employer] (SIMPLE DIAGNOSTICS LANCING DEV) MISC(Started 10/09/2018) TEST 2 TIMES A DAY 3 refills left * INCRUSE ELLIPTA 62.5 MCG/INH inhaler(Started 11/16/2018) Inhale 1 (one) puff by mouth once daily * fenofibrate (LOFIBRA) 160 MG tablet Take 160 mg by mouth once daily Take with largest meal of the day. * brimonidine (Alphagan) 0.2 % ophthalmic solution(Started 07/07/2022) Instill 1 (one) drop into left eye 2 times daily * dilTIAZem ER (Tiazac) 420 MG capsule(Started 12/03/2021) Take 1 (one) capsule by mouth once daily * gabapentin (Neurontin) 300 MG capsule(Started 12/01/2022) Take 1 (one) capsule by mouth 3 times daily * ketoconazole (Nizoral) 2 % cream(Started 08/18/2022) APPLY TOPICALLY TO THE AFFECTED AREA ONCE EVERY DAY * latanoprost (Xalatan) 0.005 % ophthalmic solution(Started 10/25/2022) Instill 1 (one) drop into both eyes at bedtime * nortriptyline (Pamelor) 10 MG capsule(Started 11/16/2022) Take 1 (one) capsule by mouth every evening * timolol maleate (Timoptic) 0.5 % ophthalmic solution(Started 10/26/2022) Instill 1 (one) drop into left eye 2 times daily * warfarin (Coumadin) 5 MG tablet(Started 09/28/2022) Take 1 (one) tablet by mouth once daily * omeprazole (PriLOSEC) 20 MG capsule Take 1 (one) capsule by mouth daily before breakfast * MILK THISTLE PO Take 1 Each by mouth once daily * tiZANidine (Zanaflex) 4 MG tablet(Started 12/23/2022) Take 1 (one) tablet by mouth every 8 hours as needed for Muscle Spasms * tiZANidine (Zanaflex) 4 MG tablet(Started 12/24/2022) Take 1 (one) tablet by mouth every 8 hours as needed for Muscle Spasms Active Problems Problem Noted Date Diagnosed Date Hypoglycemia 12/21/2022 TYLER (acute kidney injury) 12/21/2022 Essential (primary) hypertension 08/18/2016 Hypo-osmolality and hyponatremia 08/18/2016 Immunizations * INFLUENZA VACCINE, QUADR. (FLUZONE; FLULAVAL; FLUARIX; AFLURIA QUADRIVALENT; 6MO+), 0.5 ML (IIV4)(Given 11/17/2019) Social History Tobacco Use Types Packs/Day Years Used Date Smoking Tobacco: Every Day Cigarettes Smokeless Tobacco: Never Alcohol Use Standard Drinks/Week Comments Yes 0 (1 standard drink = 0.6 oz pur e alcohol) AUDIT-C Answer Date Recorded Q1: How often do you have a drink containing alc ohol? 2-4 times a month 12/21/2022 Q2: How many drinks containi ng alcohol do you have on a typical day when you are drinking? 7 to 9 12/21/2022 Q3: How often do you have si x or more drinks on one occasion? Weekly 12/21/2022 Sex and Gender Information Value Date Recorded Sex Assigned at Not on file Gender Identity Not on file Sexual Orientation Not on file Last Filed Vital Signs Vital Sign Reading Time Taken Comments Blood Pressure 135/89 12/24/2022 8:12 AM HORTICULTURE PROFESSOR Pulse 89 12/24/2022 9:45 AM HORTICULTURE PROFESSOR Temperature 36.4 C (97.5 F) 12/24/2022 8:12 AM HORTICULTURE PROFESSOR Respiratory Rate 16 12/24/2022 9:45 AM HORTICULTURE PROFESSOR Oxygen Saturation 100% 12/24/2022 9:45 AM HORTICULTURE PROFESSOR Inhaled Oxygen Concentration - - Weight 105.5 kg (232 lb 8 oz) 12/21/2022 5:00 PM HORTICULTURE PROFESSOR Height 167.6 cm (5' 6 ) 12/21/2022 5:00 PM HORTICULTURE PROFESSOR Body Mass Index 37.53 12/21/2022 5:00 PM HORTICULTURE PROFESSOR Procedures * CARDIAC EKG ORDER(Performed 12/27/2022) * GLUCOSE - POINT OF CARE(Performed 12/24/2022) * GLUCOSE - POINT OF CARE(Performed 12/24/2022) * PT-INR(Performed 12/24/2022) * GLUCOSE - POINT OF CARE(Performed 12/24/2022) * GLUCOSE - POINT OF CARE(Performed 12/23/2022) * GLUCOSE - POINT OF CARE(Performed 12/23/2022) * GLUCOSE - POINT OF CARE(Performed 12/23/2022) * GLUCOSE - POINT OF CARE(Performed 12/23/2022) * BASIC METABOLIC PANEL (CALCIUM TOTAL)(Performed 12/23/2022) Performed for Hypoglycemia * CBC W AUTO DIFFERENTIAL(Performed 12/23/2022) Performed for Hypoglycemia * HEMOGLOBIN A1C(Performed 12/23/2022) Performed for Hypoglycemia * PT-INR(Performed 12/23/2022) * GLUCOSE - POINT OF CARE(Performed 12/23/2022) * GLUCOSE - POINT OF CARE(Performed 12/23/2022) * GLUCOSE - POINT OF CARE(Performed 12/22/2022) * GLUCOSE - POINT OF CARE(Performed 12/22/2022) * URINE MICROSCOPIC ONLY REFLEX TO CULTURE(Performed 12/22/2022) Performed for TYLER (acute kidney injury) ([facility]) * URINALYSIS REFLEX MICROSCOPIC REFLEX CULTURE(Performed 12/22/2022) Performed for TYLER (acute kidney injury) ([facility]) * GLUCOSE - POINT OF CARE(Performed 12/22/2022) * GLUCOSE - POINT OF CARE(Performed 12/22/2022) * PT-INR(Performed 12/22/2022) * CBC W/O DIFFERENTIAL(Performed 12/22/2022) Performed for Hypoglycemia, TYLER (acute kidney injury) ([facility]) * BASIC METABOLIC PANEL (CALCIUM TOTAL)(Performed 12/22/2022) Performed for Hypoglycemia, TYLER (acute kidney injury) ([facility]) * GLUCOSE - POINT OF CARE(Performed 12/22/2022) * GLUCOSE - POINT OF CARE(Performed 12/21/2022) * GLUCOSE - POINT OF CARE(Performed 12/21/2022) * GLUCOSE - POINT OF CARE(Performed 12/21/2022) * PT-INR(Performed 12/21/2022) Performed for Paroxysmal atrial fibrillation ([facility]) * GLUCOSE - POINT OF CARE(Performed 12/21/2022) * GLUCOSE - POINT OF CARE(Performed 12/21/2022) * GLUCOSE - POINT OF CARE(Performed 12/21/2022) * GLUCOSE - POINT OF CARE(Performed 12/21/2022) * GLUCOSE - POINT OF CARE(Performed 12/21/2022) * URINE MICROSCOPIC ONLY REFLEX TO CULTURE(Performed 12/21/2022) * URINALYSIS REFLEX MICROSCOPIC REFLEX CULTURE(Performed 12/21/2022) * TROPONIN-I HIGH SENSITIVE REFLEX 1HOUR(Performed 12/21/2022) * CT HEAD WO CONTRAST(Performed 12/21/2022) Performed for Hypoglycemia * XR CHEST 1VW PORTABLE(Performed 12/21/2022) Performed for Hypoglycemia * PT-INR(Performed 12/21/2022) * AMMONIA(Performed 12/21/2022) * TROPONIN-I HIGH SENSITIVE BASELINE + 1HR(Performed 12/21/2022) * ALCOHOL ETHYL BLOOD(Performed 12/21/2022) * MAGNESIUM BLOOD(Performed 12/21/2022) * CBC W AUTO DIFFERENTIAL(Performed 12/21/2022) * COMPREHENSIVE METABOLIC PANEL(Performed 12/21/2022) * EKG 12-LEAD(Performed 12/21/2022) Performed for Hypoglycemia * GLUCOSE - POINT OF CARE(Performed 12/21/2022) * MRI BRAIN WWO CONTRAST(Performed 10/10/2018) Performed for Brain mass * CREATININE BLOOD - POCT (IP) [facility](Performed 10/10/2018) Performed for Brain mass * PTT [facility](Performed 10/10/2018) * PT-INR [facility](Performed 10/10/2018) * HEPATIC FUNCTION PANEL(Performed 10/10/2018) Results * CARDIAC EKG ORDER (12/27/2022 5:36 PM HORTICULTURE PROFESSOR) Narrative 12/27/2022 5:36 PM HORTICULTURE PROFESSOR Ordered by an unspecified provider. Scanned Document CARDIAC SERVICES ORD ERABLES * (ABNORMAL) GLUCOSE - POINT OF CARE (12/24/2022 11:38 AM HORTICULTURE PROFESSOR) Only the most recent of23 resultswithin the time period is included. Glucose WB/POC 210(H) 70 - 106 mg/dL 12/24/2022 11:44 AM HORTICULTURE PROFESSOR [facility] Specimen Type Cap Fingerstick 2022 11:44 AM HORTICULTURE PROFESSOR [facility] Blood BLOOD SPECIMEN / Unknown 12/24/2022 11:38 AM HORTICULTURE PROFESSOR 12/24/2022 11:44 AM HORTICULTURE PROFESSOR Perla Louis MD LAB - POINT OF CARE ORDERABLES [facility] [address] [place] [address] * (ABNORMAL) PT-INR (12/24/2022 5:56 AM HORTICULTURE PROFESSOR) Only the most recent of5 resultswithin the time period is included. PT 21.9(H) 12.1 - 14.8 sec 12/24/2022 6:20 AM HORTICULTURE PROFESSOR [facility] INR 2.0(H) 0.9 - 1.1 12/24/2022 6:20 AM HORTICULTURE PROFESSOR [facility] Blood BLOOD SPECIMEN / Unknown Lab Venipuncture / Unknown 12/24/2022 5:56 AM HORTICULTURE PROFESSOR 12/24/2022 6:10 AM HORTICULTURE PROFESSOR Narrative [facility] - 12/24/2022 6:20 AM HORTICULTURE PROFESSOR Conventional Warfarin Anticoagulant Therapy: INR Reference Range: 2.0-3.0 Intensive Warfarin Anticoagulant Therapy: INR Reference Range: 2.5-3.5 Kelsey Solitario MD LAB - COAGULATION OR DERABLES Performing Organization Address City/State/[facility] de Phone Number [facility] [address] [place] [address] * HEMOGLOBIN A1C (12/23/2022 7:33 AM HORTICULTURE PROFESSOR) Hemoglobin A1c 5.3 <5.7 % 12/23/2022 8:[address] [facility] Estimated Average Glucose 105 mg/dL 12/23/2022 8:[address] [facility] Whole Blood BLOOD SPECIMEN / Unknown Lab Venipuncture / Unknown 12/23/2022 7:33 AM HORTICULTURE PROFESSOR 12/23/2022 7:41 AM HORTICULTURE PROFESSOR Narrative [facility] - 12/23/2022 8:26 AM HORTICULTURE PROFESSOR HbA1c Interpretation: Normal: < 5.7% Pre-diabetes: 5.7-6.4% Diabetes: Equal to or greater than 6.5% Test results diagnostic of diabetes should be repeated for confirmation. Treatment target values recommended by ADA and other clinical organizations should be used to evaluate metabolic control in patients. This test should not replace glucose testing for patients with Type 1 diabetes, pediatric patients, or women. Falsely low HbA1c results may be observed in patients with clinical conditions that shorten erythrocyte life span or decrease mean erythrocyte age such as the presence of unstable hemoglobin variants, elevated hemoglobin F level or other causes of hemolytic anemia. HbA1c may not accurately reflect glycemic control when clinical conditions that affect erythrocyte survival are present. Severe Iron deficiency anemia may yield falsely high results. Hemoglobin A1c assay should not be used to diagnose or monitor diabetes in patients with malignancy, recent blood transfusion, chronic kidney or liver disease. This method may yield falsely low results when hemoglobin (HbF) exceeds 5% in the specimen. The [employer] Al[employer] assay for the measurement of HbA1c is a National Glycohemoglobin Standardization Program (NGSP) certified method. Neno Hickman MD LAB - CHEMISTRY ORDERABLES [facility] [address] [place] [address] * (ABNORMAL) CBC W AUTO DIFFERENTIAL (12/23/2022 7:33 AM HORTICULTURE PROFESSOR) Only the most recent of2 resultswithin the time period is included. WBC 4.7 4.4 - 10.7 x10E9/L 12/23/2022 7:[address] [facility] WBC Corrected 12/23/2022 7:[address] [facility] RBC 4.32 3.80 - 5.40 x10E12/L 12/23/2022 7:[address] [facility] Hemoglobin 14.2 12.0 - 17.6 gm/dL 12/23/2022 7:[address] [facility] Hematocrit 40.9 35.2 - 51.7 % 12/23/2022 7:[address] [facility] MCV 94.7 80.7 - 98.3 fl 12/23/2022 7:[address] [facility] MCH 32.9 26.7 - 34.0 pg 12/23/2022 7:[address] [facility] MCHC 34.7 30.8 - 35.9 gm/dL 12/23/2022 7:[address] [facility] Platelet Count 174 153 - 416 x10E9/L 12/23/2022 7:[address] [facility] RDW-CV 11.9(L) 12.1 - 14.9 % 12/23/2022 7:[address] [facility] MPV 9.8 9.4 - 12.9 fl 12/23/2022 7:[address] [facility] Neutrophils % 50.7 44.0 - 73.0 % 12/23/2022 7:[address] [facility] Lymphocytes % 35.4 20.0 - 43.0 % 12/23/2022 7:[address] [facility] Monocytes % 11.0 5.0 - 13.0 % 12/23/2022 7:[address] [facility] Eosinophils % 2.1 0.0 - 6.0 % 12/23/2022 7:[address] [facility] Basophils % 0.4 0.0 - 2.0 % 12/23/2022 7:[address] [facility] Immature Granulocytes 0.4 0 - 1 % 12/23/2022 7:[address] [facility] Neutrophil Absolute 2.39 2.01 - 7.14 x10E9/L 12/23/2022 7:[address] [facility] Lymphocytes Absolute 1.67 1.07 - 3.94 x10E9/L 12/23/2022 7:[address] [facility] Monocytes Absolute 0.52 0.26 - 1.07 x10E9/L 12/23/2022 7:[address] [facility] Eosinophils Absolute 0.10 0 - 0.47 x10E9/L 12/23/2022 7:[address] [facility] Basophils Absolute 0.02 0 - 0.08 x10E9/L 12/23/2022 7:[address] [facility] Immature Granulocytes Absolute 0.02 0.00 - 0.06 x10E9/L 12/23/2022 7:[address] [facility] nRBC Auto 0 /100 WBC 12/23/2022 7:[address] [facility] Blood BLOOD SPECIMEN / Unknown Lab Venipuncture / Unknown 12/23/2022 7:33 AM HORTICULTURE PROFESSOR 12/23/2022 7:41 AM [facility] Neno iHckman MD LAB - HEMATOLOGY ORDERABLES [facility] [place] [address] * (ABNORMAL) BASIC METABOLIC PANEL (CALCIUM TOTAL) (12/23/2022 7:33 AM HORTICULTURE PROFESSOR) Only the most recent of2 resultswithin the time period is included. Glucose 193(H) 70 - 105 mg/dL 12/23/2022 8:[address] [facility] Sodium 136 136 - 145 mmol/L 12/23/2022 8:[address] [facility] Potassium 4.1 3.5 - 5.1 mmol/L 12/23/2022 8:[address] [facility] Chloride 106 98 - 107 mmol/L 12/23/2022 8:[address] [facility] CO2 22 22 - 29 mmol/L 12/23/2022 8:[address] [facility] Calcium 9.2 8.4 - 10.4 mg/dL 12/23/2022 8:[address] [facility] Anion Gap 8 6 - 16 mmol/L 12/23/2022 8:[address] [facility] BUN 14 7 - 26 mg/dL 12/23/2022 8:[address] [facility] Creatinine 1.25 0.72 - 1.25 mg/dL 12/23/2022 8:[address] [facility] eGFR by CKD-EPI 68(L) >=90 mL/min/1.7 3 m2 12/23/2022 8:[address] [facility] Blood BLOOD SPECIMEN / Unknown Lab Venipuncture / Unknown 12/23/2022 7:33 AM HORTICULTURE PROFESSOR 12/23/2022 7:43 AM [facility] Neno Hickman MD LAB - CHEMISTRY ORDERABLES [facility] [address] [place] [address] * (ABNORMAL) URINE MICROSCOPIC ONLY REFLEX TO CULTURE (12/22/2022 12:56 PM HORTICULTURE PROFESSOR) Only the most recent of2 resultswithin the time period is included. Reflex Status Culture not indicated 12/22/2022 1:28 PM HORTICULTURE PROFESSOR [facility] RBC UA 3-5 0 - 5 # /hpf 12/22/2022 1:28 PM HORTICULTURE PROFESSOR [facility] WBC UA 0-5 0 - 5 # /hpf 12/22/2022 1:28 PM HORTICULTURE PROFESSOR [facility] Bacteria UA Trace(A) None Seen 12/22/2022 1:28 PM HORTICULTURE PROFESSOR [facility] Squamous Epithelial Cells None Seen 0 - 5 /hpf 12/22/2022 1:28 PM HORTICULTURE PROFESSOR [facility] Sperm UA Present(A) Absent 12/22/2022 1:28 PM HORTICULTURE PROFESSOR [facility] Urine URINE SPECIMEN OBTAINED BY CLEAN CATCH PROCEDURE / Unknown Collection / Unknown 12/22/2022 12:56 PM HORTICULTURE PROFESSOR 12/22/2022 1:04 PM HORTICULTURE PROFESSOR Narrative [facility] - 12/22/2022 1:28 PM HORTICULTURE PROFESSOR Neno Hickman MD LAB - URINALYSIS ORDERABLES [facility] [address] [place] [address] * (ABNORMAL) URINALYSIS REFLEX MICROSCOPIC REFLEX CULTURE (12/22/2022 12:56 PM HORTICULTURE PROFESSOR) Only the most recent of2 resultswithin the time period is included. Color UA Yellow Straw, Yellow 12/22/2022 1:[address] [facility] Clarity UA Clear Clear 12/22/2022 1:[address] [facility] Glucose UA 3+(A) Negative 12/22/2022 1:[address] [facility] Bilirubin UA Negative Negative 12/22/2022 1:[address] [facility] Ketone UA Negative Negative 12/22/2022 1:[address] [facility] Specific Albia UA 1.006 1.005 - 1.030 12/22/2022 1:[address] [facility] Blood UA 1+(A) Negative 12/22/2022 1:[address] [facility] pH UA 6.0 5.0 - 8.0 pH 12/22/2022 1:[address] [facility] Protein UA Negative Negative 12/22/2022 1:[address] [facility] Urobilinogen UA 4.0(A) Negative mg/dL 12/22/2022 1:[address] [facility] Nitrite UA Negative Negative 12/22/2022 1:[address] [facility] Leukocyte UA Negative Negative 12/22/2022 1:[address] [facility] Urine Microscopy Urine microscopy to follow 12/22/2022 1:[address] [facility] Reflex Status Culture not indicated 12/22/2022 1:[address] [facility] Urine URINE SPECIMEN OBTAINED BY CLEAN CATCH PROCEDURE / Unknown Collection / Unknown 12/22/2022 12:56 PM HORTICULTURE PROFESSOR 12/22/2022 1:04 PM HORTICULTURE PROFESSOR Narrative [facility] - 12/22/2022 1:10 PM HORTICULTURE PROFESSOR Neno Hickman MD LAB - URINALYSIS ORDERABLES [facility] [address] [place] [address] * CBC W/O DIFFERENTIAL (12/22/2022 7:35 AM HORTICULTURE PROFESSOR) WBC 5.8 4.4 - 10.7 x10E9/L 12/22/2022 8:[address] [facility] RBC 4.29 3.80 - 5.40 x10E12/L 12/22/2022 8:[address] [facility] Hemoglobin 14.2 12.0 - 17.6 gm/dL 12/22/2022 8:[address] [facility] Hematocrit 40.4 35.2 - 51.7 % 12/22/2022 8:[address] [facility] MCV 94.2 80.7 - 98.3 fl 12/22/2022 8:[address] [facility] MCH 33.1 26.7 - 34.0 pg 12/22/2022 8:[address] [facility] MCHC 35.1 30.8 - 35.9 gm/dL 12/22/2022 8:[address] [facility] Platelet Count 176 153 - 416 x10E9/L 12/22/2022 8:[address] [facility] RDW-CV 12.2 12.1 - 14.9 % 12/22/2022 8:[address] [facility] MPV 10.1 9.4 - 12.9 fl 12/22/2022 8:[address] [facility] Blood BLOOD SPECIMEN / Unknown Lab Venipuncture / Unknown 12/22/2022 7:35 AM HORTICULTURE PROFESSOR 12/22/2022 8:21 AM HORTICULTURE PROFESSOR Kelsey Solitario MD LAB - HEMATOLOGY ORD ERABLES [facility] [address] [place] [address] * TROPONIN-I HIGH SENSITIVE REFLEX 1HOUR (12/21/2022 1:51 PM HORTICULTURE PROFESSOR) Pathologist [facility] Troponin I High Sensitive <3 <=35 ng/L 12/21/2022 2:16 PM HORTICULTURE PROFESSOR [facility] Delta Troponin I HS 12/21/2022 2:16 PM HORTICULTURE PROFESSOR [facility] Comment:Result exceeds linea rity range. A delta value is unable to be calculated. Blood BLOOD SPECIMEN / Unknown Venipuncture / Unknown 12/21/2022 1:51 PM HORTICULTURE PROFESSOR 12/21/2022 1:54 PM HORTICULTURE PROFESSOR Rony Ahn MD LAB - CHEMISTRY OR DERABLES Performing Organization Address [facility]/ZIP Co de Phone Number [facility] [address] [place] [address] * CT HEAD WO CONTRAST (12/21/2022 1:37 PM HORTICULTURE PROFESSOR) Anatomical Region Laterality Modality Head Computed Tomogra phy 12/21/2022 1:54 PM HORTICULTURE PROFESSOR Impressions 12/21/2022 2:02 PM HORTICULTURE PROFESSOR IMPRESSION: 1. No acute intracranial abnormality. 2. Colloid cyst of 6 mm. No evidence of obstructive hydrocephalus. Neurosurgical consultation recommended. > Interpreting Provider: Bala Boateng MD on 12/21/2022 2:02 PM Narrative 12/21/2022 2:[address] Brain Without Contrast Indication: Hypoglycemia. Altered mental status. Comparison: None available Technique: Axial images of the brain were obtained without contrast and reconstructions performed. Findings: No cortical edema or acute intracranial hemorrhage. A rounded hyperdense mass is seen at the roof of the third ventricle measuring 6 mm. This lesion is most consistent with a colloid cyst. There is no evidence of obstructive hydrocephalus. There is a CSF density cyst in the right posterior fossa 2 cm likely and arachnoid cyst. No significant mass effect. Calvarium is intact. Mild paranasal sinus disease. Mastoid air cells are clear. Procedure Note Bala Boateng MD - 12/21/2022 CT Brain Without Contrast Indication: Hypoglycemia. Altered mental status. Comparison: None available Technique: Axial images of the brain were obtained without contrast and reconstructions performed. Findings: No cortical edema or acute intracranial hemorrhage. A rounded hyperdense mass is seen at the roof of the third ventricle measuring 6mm. This lesion is most consistent with a colloid cyst. There is no evidenceof obstructive hydrocephalus. There is a CSF density cyst in the right posterior fossa 2 cm likely and arachnoid cyst. No significant masseffect. Calvarium is intact. Mild paranasal sinus disease. Mastoid air cells are clear. IMPRESSION: 1. No acute intracranial abnormality. 2. Colloid cyst of 6 mm. No evidence of obstructive hydrocephalus. Neurosurgical consultation recommended. > Interpreting Provider: Bala Boateng MD on 12/21/2022 2:02 PM [address] A[address] MD CT ORDERABLES * XR CHEST 1VW PORTABLE (12/21/2022 12:52 PM HORTICULTURE PROFESSOR) Anatomical Region Laterality Modality Chest Radiographic Sidra ging 12/21/2022 1:01 PM HORTICULTURE PROFESSOR Impressions 12/21/2022 1:01 PM HORTICULTURE PROFESSOR IMPRESSION: No acute cardiopulmonary abnormalities. > Interpreting Provider: Norma Jasso MD on 12/21/2022 1:01 PM Narrative 12/21/2022 1:01 PM HORTICULTURE PROFESSOR PROCEDURE: XR CHEST 1VW PORTABLE DATE/TIME OF EXAM: 12/21/2022 12:52 PM CLINICAL INFORMATION: None relevant/not provided if blank. Indication: E16.2: Hypoglycemia, unspecified Additional History: COMPARISON: None. FINDINGS: The heart size is upper limits of normal to mildly enlarged. The pulmonary vascularity is within normal limits. The lungs are well expanded and clear. No pleural effusion is seen. Procedure Note Norma Jasso MD - 12/21/2022 PROCEDURE: XR CHEST 1VW PORTABLE DATE/TIME OF EXAM: 12/21/2022 12:52 PM CLINICAL INFORMATION: None relevant/not provided if blank. Indication: E16.2: Hypoglycemia, unspecified Additional History: COMPARISON: None. FINDINGS: The heart size is upper limits of normal to mildly enlarged. Thepulmonary vascularity is within normal limits. The lungs are well expanded andclear. No pleural effusion is seen. IMPRESSION: No acute cardiopulmonary abnormalities. > Interpreting Provider: Norma Jasso MD on 12/21/2022 1:01 PM Rony Ahn MD DIAGNOSTIC IMAGING ORDERABLES * TROPONIN-I HIGH SENSITIVE BASELINE + 1HR (12/21/2022 12:36 PM HORTICULTURE PROFESSOR) Troponin I High Sensitive <3 <=35 ng/L 12/21/2022 1:04 PM HORTICULTURE PROFESSOR [facility] Blood BLOOD SPECIMEN / Unknown Venipuncture / Unknown 12/21/2022 12:36 PM HORTICULTURE PROFESSOR 12/21/2022 12:41 PM HORTICULTURE PROFESSOR Rony Ahn MD LAB - CHEMISTRY OR DERABLES [facility] [address] [place] [address] * (ABNORMAL) COMPREHENSIVE METABOLIC PANEL (12/21/2022 12:36 PM HORTICULTURE PROFESSOR) Glucose 161(H) 70 - 105 mg/dL 12/21/2022 12:59 PM HORTICULTURE PROFESSOR [facility] Sodium 135(L) 136 - 145 mmol/L 12/21/2022 12:59 PM HORTICULTURE PROFESSOR [facility] Potassium 3.7 3.5 - 5.1 mmol/L 12/21/2022 12:[address] [facility] Chloride 102 98 - 107 mmol/L 12/21/2022 12:[address] [facility] CO2 21(L) 22 - 29 mmol/L 12/21/2022 12:[address] [facility] Calcium 9.1 8.4 - 10.4 mg/dL 12/21/2022 12:[address] [facility] Anion Gap 12 6 - 16 mmol/L 12/21/2022 12:[address] [facility] BUN 18 7 - 26 mg/dL 12/21/2022 12:59 PM HORTICULTURE PROFESSOR [facility] Creatinine 1.79(H) 0.72 - 1.25 mg/dL 12/21/2022 12:59 PM HORTICULTURE PROFESSOR [facility] Alkaline Phosphatase 44 40 - 150 U/L 12/21/2022 12:[address] [facility] ALT 15 0 - 55 U/L 12/21/2022 12:[address] [facility] AST 19 5 - 34 U/L 12/21/2022 12:[address] [facility] Protein Total 7.7 6.4 - 8.3 gm/dL 12/21/2022 12:[address] [facility] Albumin 3.8 3.4 - 5.0 gm/dL 12/21/2022 12:[address] [facility] Bilirubin Total 0.6 0.2 - 1.2 mg/dL 12/21/2022 12:[address] [facility] eGFR by CKD-EPI 44(L) >=90 mL/min/1.7 3 m2 12/21/2022 12:59 PM HORTICULTURE PROFESSOR [facility] Blood BLOOD SPECIMEN / Unknown Venipuncture / Unknown 12/21/2022 12:36 PM HORTICULTURE PROFESSOR 12/21/2022 12:41 PM HORTICULTURE PROFESSOR Rony Ahn MD LAB - CHEMISTRY OR DERABLES [facility] [address] [place] [address] * (ABNORMAL) MAGNESIUM BLOOD (12/21/2022 12:36 PM HORTICULTURE PROFESSOR) Magnesium 1.5(L) 1.6 - 2.6 mg/dL 12/21/2022 12:59 PM HORTICULTURE PROFESSOR [facility] Blood BLOOD SPECIMEN / Unknown Venipuncture / Unknown 12/21/2022 12:36 PM HORTICULTURE PROFESSOR 12/21/2022 12:41 PM HORTICULTURE PROFESSOR Rony Ahn MD LAB - CHEMISTRY OR DERABLES [facility] [address] [place] [address] * AMMONIA (12/21/2022 12:36 PM HORTICULTURE PROFESSOR) Ammonia 27 18 - 72 umol/L 12/21/2022 12:50 PM HORTICULTURE PROFESSOR [facility] Blood BLOOD SPECIMEN / Unknown Venipuncture / Unknown 12/21/2022 12:36 PM HORTICULTURE PROFESSOR 12/21/2022 12:41 PM HORTICULTURE PROFESSOR Rony Ahn MD LAB - CHEMISTRY OR DERABLES Performing Organization Address [facility]/ZIP Co de Phone Number [facility] [address] [place] [address] * ALCOHOL ETHYL BLOOD (12/21/2022 12:36 PM HORTICULTURE PROFESSOR) Pathologist [facility] Ethanol <10.0 <10 mg/dL 12/21/2022 12:59 PM HORTICULTURE PROFESSOR [facility] Ethanol Calculated <0.010 <=0.100 gm/dL 12/21/2022 12:59 PM HORTICULTURE PROFESSOR [facility] Blood BLOOD SPECIMEN / Unknown Venipuncture / Unknown 12/21/2022 12:36 PM HORTICULTURE PROFESSOR 12/21/2022 12:41 PM HORTICULTURE PROFESSOR Narrative [facility] - 12/21/2022 12:59 PM HORTICULTURE PROFESSOR Ethanol Interp <10: None Detected Depression of CSN: >100 mg/dL Potentially Critical: >250 mg/dL Potentially Fatal >400 mg/dL Ethanol in the patient's blood will contribute to the osmolar gap. Ethanol's contribution to the osmolar gap can be estimated by dividing the concentration of ethanol in mg/dL by 4.6. This test is for clinical use only and does not equal a BRIANNA for legal purposes. Rony Ahn MD LAB - CHEMISTRY OR DERABLES Performing Organization Address City/[facility]/ZIP Co de Phone Number [facility] [address] [place] [address] * EKG 12-LEAD (12/21/2022 12:33 PM HORTICULTURE PROFESSOR) Ventricular Rate 95 BPM [facility] QRS Duration ms 68 ms [facility] Q-T Interval ms 356 ms [facility] QTC Calculation (Bezet) 447 ms [facility] Calculated R [place] 47 degrees [facility] Calculated T [place] 58 degrees [facility] Interpretation EKG Atrial fibrillation with premature ventricular or aberrantly conducted complexes Abnormal ECG No previous ECGs available Confirmed by MD ARAM, YANNICK Graf ([id number]) on 12/26/2022 11:35:54 AM [facility] 12/21/2022 12:3 3 PM HORTICULTURE PROFESSOR 12/26/2022 11:35 AM HORTICULTURE PROFESSOR Rony Ahn MD ECG ORDERABLES [facility] * MRI BRAIN WWO CONTRAST (10/10/2018 8:35 PM CDT) Anatomical Region Laterality Modality Head Magnetic Resonan ce 10/11/2018 7:26 AM CDT Impressions 10/11/2018 9:45 AM CDT IMPRESSION: 1. 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 No evidence of ventriculomegaly. I, Dr. ATILIO HENDRICKSON have personally reviewed and interpreted this examination/study. This report was electronically signed by ATILIO HENDRICKSON on 10/11/2018 9:45 AM . Narrative 10/11/2018 9:45 AM CDT EXAMINATION: Magnetic resonance imaging (MRI) of the brain without and with contrast HISTORY: Brain mass TECHNIQUE: MRI of the brain was performed prior to and following the uneventful administration of 10 mL Gadavist intravenous gadolinium contrast according to a tumor protocol. COMPARISON: Comparison is made to an outside institution head CT from 10/10/2018 FINDINGS: No evidence of acute or chronic hemorrhage is identified. No evidence of acute cerebral infarction is seen. There is a small mildly T1 hyperintense nonenhancing mass centered in the region of the third ventricle at the foramen of Monro measuring 4 mm, consistent with a colloid cyst. The ventricles are nondilated. An arachnoid cyst measuring 2.4 cm AP by 1.4 cm TV (series 8 image 6) by 2.1 cm CC (series 9 image 15) in the medial aspect of the right posterior fossa is incidentally noted, causing mild mass effect. There is no midline shift. Scattered cerebral hemispheric white matter FLAIR hyperintensities are a nonspecific finding. No enhancing lesions are identified. The corpus callosum and sella appear normal. The posterior fossa, brainstem, and craniocervical junction otherwise appear normal. Large nonenhancing mucus retention cysts are seen in bilateral maxillary sinuses. There is mild mucosal thickening of bilateral ethmoid, sphenoid and frontal sinuses. The orbital contents are normal and symmetric. The middle ear cavities and mastoid air cells are clear. Normal flow voids are demonstrated in the carotid arteries and basilar artery. The calvarium and visualized cervical spine appear normal. Procedure Note Atilio Hendrickson MD - 10/11/2018 EXAMINATION: Magnetic resonance imaging (MRI) of the brain without and with contrast HISTORY: Brain mass TECHNIQUE: MRI of the brain was performed prior to and following the uneventful administration of 10 mL Gadavist intravenous gadolinium contrast according to a tumor protocol. COMPARISON: Comparison is made to an outside institution head CT from 10/10/2018 FINDINGS: No evidence of acute or chronic hemorrhage is identified. No evidence of acute cerebral infarction is seen. There is a small mildly [id number] nonenhancing mass centered in the region of the third ventricle at the foramen of Monro measuring 4 mm, consistent with a colloid cyst. The ventricles are nondilated. An arachnoid cyst measuring 2.4 cm AP by 1.4cm TV (series 8 image 6) by 2.1 cm CC (series 9 image 15) in the medial aspect of the right posterior fossa is incidentally noted, causing mild mass effect. There is no midline shift. Scattered cerebral hemispheric white matter FLAIR hyperintensities are a nonspecific finding. No enhancing lesions are identified. The corpus callosum and sella appear normal. The posterior fossa, brainstem, and craniocervical junction otherwise appear normal. Large nonenhancing mucus retention cysts are seen in bilateral maxillary sinuses. There is mild mucosal thickening of bilateral ethmoid, sphenoid and frontal sinuses. The orbital contents are normal and symmetric. The middle ear cavities and mastoid air cells are clear. Normal flow voidsare demonstrated in the carotid arteries and basilar artery. The calvariumand visualized cervical spine appear normal. IMPRESSION: 1. 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 No evidence of ventriculomegaly. I, Dr. ATILIO SEHI have personally reviewed and interpreted this examination/study. This report was electronically signed by ATILIO HENDRICKSON on 10/11/2018 9:45AM . Maynor Tadeo MD MR ORDERABLES * (ABNORMAL) CREATININE BLOOD - POCT (IP) [facility] (10/10/2018 7:38 PM CDT) Creatinine POCT 1.34(A) 0.3 - 1.3 mg/dL [facility] POCT TESTING eGFR POCT 60 60 ml/min [facility] POCT TESTING Blood BLOOD SPECIMEN / Unknown 10/10/2018 7:38 PM CDT Henri Singh MD LAB - POINT OF CARE ORDERABLES Performing Organization Address [facility] Co de Phone Number [facility] POCT TESTING [address] [phone] * PTT [facility] (10/10/2018 6:28 PM CDT) APTT 30.1 23.0 - 38.4 Seconds 10/10/2018 6:45 PM CDT [facility] Comment: * Please Note: New therapeutic range for heparin therapy. * Suggested therapeutic range for full dose I.V. heparin therapy for venous thromboembolism is 65 to 103 seconds. Blood BLOOD SPECIMEN / Unknown Venipuncture / Unknown 10/10/2018 6:28 PM CDT 10/10/2018 6:33 PM CDT Maynor Tadeo MD LAB - COAGULATION OR DERABLES Performing Organization Address City/[facility]/ZIP Co de Phone Number [address] [phone] * PT-INR [facility] (10/10/2018 6:28 PM CDT) Pathologist [facility] PT 13.8 12.1 - 14.8 Seconds 10/10/2018 6:44 PM CDT [facility] INR 1.1 See Comment 10/10/2018 6:44 PM [facility] Comment: The suggested therapeutic range for standard coumadin (warfarin) therapy is an INR of 2.0-3.0. For high-risk patients (Mechanical Mitral Valve Prosthesis, etc.), the suggested prophylactic therapeutic range is an INR of 2.5-3.5. Blood BLOOD SPECIMEN / Unknown Venipuncture / Unknown 10/10/2018 6:28 PM CDT 10/10/2018 6:33 PM CDT Maynor Tadeo MD LAB - COAGULATION OR DERABLES Performing Organization Address City/State/[facility] Co de Phone Number [address] [phone] * HEPATIC FUNCTION PANEL (10/10/2018 6:28 PM CDT) [facility] Protein Total 6.9 6.0 - 8.3 g/dL 019 6:49 PM [facility] Albumin 3.7 3.4 - 5.0 g/dL 10/10/2018 6:49 PM [facility] Bilirubin Total 0.4 0.2 - 1.2 mg/dL 04/2018 6:49 PM [facility] Bilirubin Conjugated 0.2 0.0 - 0.5 mg/dL 10/10/2018 6:49 PM [facility] Bilirubin Unconjugated 0.2 Unconjugated Bilirubin is a calculated value: Reference ranges have not been established. mg/dL 10/10/2018 6:49 PM [facility] Alkaline Phosphatase 56 40 - 150 Units/L 10/10/2018 6:49 PM [facility] ALT 12 0 - 55 Units/L 10/10/2018 6:49 PM [facility] AST 13 5 - 34 Units/L 10/10/2018 6:49 PM CDT [facility] Albumin/Globulin Ratio 1.2 1.1 - 2.3 10/10/2018 6:49 PM CDT [facility] Blood BLOOD SPECIMEN / Unknown Venipuncture / Unknown 10/10/2018 6:28 PM CDT 10/10/2018 6:33 PM CDT Maynor Tadeo MD LAB - CHEMISTRY [facility] Organization Address City/State/ZIP Co de Phone Number [facility] [address] [place] [address] Care Teams Tipple Oiler Relationship Specialty Start Date End Date Vik Lindquist MD [address] [place] [phone] PCP - General 04/13/22
--- OUTSIDE RECORDS SUMMARY | 2024-04-02 11:35 | XMS_ITS | Clinical Summary ---
Author Organization [facility] Address [address] [place] [address] Care Team Providers Care Rubber Chemist Name Role Phone Vik Lindquist MD Primary Care Provider [phone] Source Comments [facility],non-owned Affiliates and Associated Physician Practices is amultiple site organization consisting of ambulatory clinics and hospital sitesin [place], [place] and [place]. This disclosure is being madepursuant to the Care Everywhere program and may not contain all information available regarding this patient. Last updated 17.[facility] [employer] [facility] Allergies No known active allergies Medications * Be aware that medications may not be up to date on this document. Alwaysverify current medications with the patient. Medication Sig Dispensed Refills Start Date End Date Status metFORMIN (GLUCOPHAGE) 1000 MG tablet Take 1,000 mg by mouth 2 times daily with morning and evening meal Active fish oil/omega-3 fatty acids (PROMEGA;CARDI-OMEGA 3) 1000 MG capsule Take 1 (one) capsule by mouth daily with food Active citalopram (CELEXA) 20 MG tablet Take 20 mg by mouth once daily Active albuterol HFA (PROVENTIL;VENTOLIN; PROAIR) 108 (90 Base) MCG/ACT inhaler Inhale 2 (two) puffs by mouth every 4 hours as needed for Shortness of Breath or Wheezing 0 10/13/2018 Active Blood Glucose Monitoring Suppl (ONE TOUCH ULTRA 2) w/Device KIT TEST 2 TIMES A DAY 0 10/09/2018 Acti ve ONETOUCH ULTRA TEST STRIPS test strip 11/22/2018 Active Lancet Devices (SIMPLE DIAGNOSTICS LANCING DEV) MISC TEST 2 TIMES A DAY 3 10/09/2018 Active INCRUSE ELLIPTA 62.5 MCG/INH inhaler Inhale 1 (one) puff by mouth once daily 0 11/16/2018 Active fenofibrate (LOFIBRA) 160 MG tablet Take 160 mg by mouth once daily Take with largest meal of the day. Active brimonidine (Alphagan) 0.2 % ophthalmic solution Instill 1 (one) drop into left eye 2 times daily 07/07/2022 Active dilTIAZem ER (Tiazac) 420 MG capsule Take 1 (one) capsule by mouth once daily 12/03/2021 Active gabapentin (Neurontin) 300 MG capsule Take 1 (one) capsule by mouth 3 times daily 12/01/2022 Active ketoconazole (Nizoral) 2 % cream APPLY TOPICALLY TO THE AFFECTED AREA ONCE EVERY DAY 08/18/2022 Active latanoprost (Xalatan) 0.005 % ophthalmic solution Instill 1 (one) drop into both eyes at bedtime 10/25/2022 Active nortriptyline (Pamelor) 10 MG capsule Take 1 (one) capsule by mouth every evening 11/16/2022 Active timolol maleate (Timoptic) 0.5 % ophthalmic solution Instill 1 (one) drop into left eye 2 times daily 10/26/2022 Active warfarin (Coumadin) 5 MG tablet Take 1 (one) tablet by mouth once daily 09/28/2022 Active omeprazole (PriLOSEC) 20 MG capsule Take 1 (one) capsule by mouth daily before breakfast Active MILK THISTLE PO Take 1 Each by mouth once daily Active tiZANidine (Zanaflex) 4 MG tablet Take 1 (one) tablet by mouth every 8 hours as needed for Muscle Spasms 20 tablet 12/23/2022 Active tiZANidine (Zanaflex) 4 MG tablet Take 1 (one) tablet by mouth every 8 hours as needed for Muscle Spasms 30 tablet 12/24/2022 Active Active Problems Problem Noted Date Diagnosed Date Hypoglycemia 12/21/2022 TYLER (acute kidney injury) 12/21/2022 Essential (primary) hypertension 08/18/2016 Hypo-osmolality and hyponatremia 08/18/2016 Immunizations Name Administration Dates Next Due INFLUENZA VACCINE, QUADR. (F LUZONE; FLULAVAL; FLUARIX; AFLURIA QUADRIVALENT; 6MO+), 0.5 ML (IIV4) 11/17/2019 Social History Tobacco Use Types Packs/Day Years [...] Comments Blood Pressure 135/89 12/24/2022 8:12 AM RE[facility]ERY [facility]ATOR [facility] Pulse 89 12/24/2022 9:45 AM [facility] Temperature 36.4 C (97.5 F) 12/24/2022 8:12 AM [facility] Respiratory Rate 16 12/24/2022 9:45 AM [facility] Oxygen Saturation 100% 12/24/2022 9:45 AM [facility] Inhaled Oxygen Concentration - - Weight 105.5 kg (232 lb 8 oz) 12/21/2022 5:00 PM [facility] Height 167.6 cm (5' 6 ) 12/21/2022 5:00 PM [facility] Body Mass Index 37.53 12/21/2022 5:00 PM [facility] Plan of Treatment Health Maintenance Due Date Last Done Comments COLOGUARD (AGES 45-75) - COLON CA SCREENING 1966 COLON MONITORING 1966 COLONOSCOPY - COLON CA SCREENING 1966 CT COLONOGRAPHY - COLON CA SCREENING 1966 Colorectal Cancer Screening 1966 FIT - COLON CA SCREENING 1966 FLEX SIG - COLON CA SCREENING 1966 LIPID TESTING 1966 HIV SCREENING 1981 HEPATITIS C SCREENING 10/23/1984 DTAP/TDAP/TD VACCINES (1 - Tdap) 1985 HEPATITIS B VACCINE (1 of 3 - 19+ 3-dose series) 1985 PNEUMOCOCCAL VACCINE 50+ (1 of 2 - PCV) 1985 PNEUMOCOCCAL VACCINE (1 of 2 - PCV) 1985 ZOSTER VACCINE (1 of 2) 2016 COVID-19 VACCINE ( season) 2023 11/04/2021, 05/04/2021, 10/10/2020, Additional history exists INFLUENZA VACCINE (#1) 2023 11/04/2021, 2019 DEPRESSION SCREENING 02/08/2024 SCREENING FOR DIABETES 12/24/2025 , 12/24/2022, 12/24/2022, Additional history exists HIB VACCINE Aged Out No longer eligi ble based on patient's age to complete this topic HPV VACCINE Aged Out No longer eligi ble based on patient's age to complete this topic MENINGOCOCCAL (Group B) VACCINE Aged Out No longer eligible based on patient's age to complete this topic MENINGOCOCCAL VACCINE Aged Out No xavi jose eligible based on patient's age to complete this topic Procedures Procedure Name Priority Date/Time Associated Diagnosis Comments GLUCOSE - POINT OF CARE Routine 12/24/2022 11:38 AM RE[facility] from Last 3 Months or Most Recently Relevant to Health Maintenance Results * (ABNORMAL) GLUCOSE - POINT OF CARE (12/24/2022 11:38 AM [facility]) Pathologist [facility] Glucose WB/POC 210(H) 70 - 106 mg/dL 12/24/2022 11:44 AM [facility] Specimen Type Cap Fingerstick 2022 11:44 AM [facility] Blood BLOOD SPECIMEN / Unknown 12/24/2022 11:38 AM [facility] 12/24/2022 11:44 AM [facility] Perla Louis MD LAB - POINT OF CARE ORDERABLES [facility] [address] [place] [address] from Last 3 Months or Most Recently Relevant to Health Maintenance Advance Directives * Full Code (Latest Code Status on File) Date Activated Date Inactivated Comments 12/21/2022 5:31 PM 12/24/2022 1:19 PM Care Teams Rubber Chemist Relationship Specialty Start Date End Date Vik Lindquist MD [address] [place] [phone] PCP - General 04/13/22
--- OUTSIDE RECORDS SUMMARY | 2024-04-02 11:36 | XMS_ITS | Clinical Summary ---
Author Organization [facility] Address [facility] [place] [address] Care Team Providers Care Precise Winder Name Role Phone Michelle Gregory MD Primary Care Provider Allergies No known active allergies Medications venlafaxine 24 hr 75 MG 24 hr capsule Take 1 capsule by mouth daily with breakfast. 0 8 Active omeprazole 20 MG capsule Take 20 mg by mouth daily. Active lorazepam 1 MG tablet Take 1 tablet (1 mg total) by mouth every 6 (six) hours as needed (withdrawl symptoms). 10 tablet 8 Active lactulose 10 GM/15ML solution TK 15ML PO BID 0 Active albuterol sulfate HFA 108 (90 Base) MCG/ACT inhaler INL 2 PFS PO Q 4 TO 6 H PRN 9 Active Alcohol Swabs (ALCOHOL PREP) Pads TEST 2 TIMES A DAY 0 Active amLODIPine 10 MG tablet Take 10 mg by mouth daily. 0 Active Blood Glucose Monitoring Suppl (ONE TOUCH ULTRA 2) w/Device Kit TEST 2 TIMES A DAY 9 Active Blood Glucose Monitoring Suppl (ONE TOUCH ULTRA 2) w/Device Kit TEST 2 TIMES A DAY 9 Active citalopram 20 MG tablet Take 20 mg by mouth daily. 0 Active fenofibrate 160 MG tablet 0 Active glimepiride 2 MG tablet TK ONE HALF OF A T PO BID 0 Active ONE TOUCH ULTRA TEST STRIPS test strip TEST 2 TIMES A DAY 0 Active Lancet Devices (SIMPLE DIAGNOSTICS LANCING DEV) Misc TEST 2 TIMES A DAY 9 Active Advocate Lancets Misc TEST 2 TIMES A DAY 0 Active metFORMIN 1000 MG tablet 0 Active fish oil 1000 MG Cap capsule Take 1,000 mg by mouth. Active pantoprazole EC 40 MG tablet Take 40 mg by mouth daily. 0 Active traMADol 50 MG tablet TK 1 T PO Q 12 H PRF DAWKINS 0 Active traZODone 100 MG tablet Take 100 mg by mouth nightly at bedtime. 9 Active INCRUSE ELLIPTA 62.5 MCG/INH AEROSOL POWDER, BREATH ACTIVATED INL 1 PUFF PO D 0 Active lisinopril 40 MG tablet Take 40 mg by mouth daily. 0 Active dilTIAZem ER (TIAZAC) 420 MG 24 hr capsule Take 420 mg by mouth daily. 2 Active gabapentin (NEURONTIN) 300 MG capsule Take 300 mg by mouth 3 (three) times daily. 2 Active latanoprost (XALATAN) 0.005 % ophthalmic solution INSTILL 1 DROP IN BOTH EYES AT BEDTIME DIRECTED 2 Active timolol (TIMOPTIC) 0.5 % ophthalmic solution INSTILL 1 DROP IN LEFT EYE TWICE DAILY 2 Active nortriptyline (PAMELOR) 10 MG capsule Take 10 mg by mouth daily. 2 Active warfarin (COUMADIN) 5 MG tablet 2 Active ketoconazole (NIZORAL) 2 % cream APPLY TOPICALLY TO THE AFFECTED AREA ONCE EVERY DAY 2 Active Active Problems Problem Noted Date Diagnosed Date Essential (primary) hypertension 08/18/2016 Hypo-osmolality and hyponatremia 08/18/2016 Family History Medical History Relation Comments No Known Problems Father No Known Problems Maternal Grandfather No Known Problems Maternal Grandmother No Known Problems Mother No Known Problems Paternal Grandfather No Known Problems Paternal Grandmother Diabetes Sister Heart Disease Sister Hypertension Sister Relation Status Comments Father Maternal Grandfather Maternal Grandmother Mother Paternal Grandfather Paternal Grandmother Sister Social History Tobacco Use Types Packs/Day Years Used Date Smoking Tobacco: Every Day Cigarettes 1 35 Smokeless Tobacco: Never Tobacco Cessation:Ready to Q uit: No; Counseling Given: Yes Alcohol Use Standard Drinks/Week Comments Not Currently 0 (1 standard drink = 0.6 oz pur e alcohol) EtOH abuse. Dry 2020. Sex and Gender Information Value Date Recorded Sex Assigned at Male 06/20/2019 9:46 AM CDT Legal Sex Male 11:07 PM CDT Gender Identity Male 06/20/2019 9:46 AM CDT Sexual Orientation Straight 06/20/2019 9: 46 AM CDT Last Filed Vital Signs Vital Sign Reading Time Taken Comments Blood Pressure 108/83 12/15/2021 12:25 PM SEASONER HAND Pulse 66 12/15/2021 12:25 PM SEASONER HAND Temperature 36.4 C (97.6 F) 12/15/2021 10:13 AM SEASONER HAND Respiratory Rate 20 12/15/2021 12:25 PM SEASONER HAND Oxygen Saturation 97% 12/15/2021 12:25 PM SEASONER HAND Inhaled Oxygen Concentration - - Weight 121.1 kg (267 lb) 12/15/2021 10:13 AM SEASONER HAND Height 167.6 cm (5' 6 ) 12/15/2021 10:13 AM SEASONER HAND Body Mass Index 43.09 12/15/2021 10:13 AM SEASONER HAND Plan of Treatment Health Maintenance Due Date Last Done Comments Colorectal Cancer Screening Colonoscopy (10 Years) 1966 Annual Physical 1969 Pneumococcal Vaccine: Pediatrics (0 to 5 Years) and At-Risk Patients (6 to 64 Years) (1 of 2 - PCV) 1972 Hepatitis C 1984 DTaP, Tdap and Td Vaccines (1 - Tdap) 1985 Hepatitis B Vaccines (1 of 3 - 19+ 3-dose series) 1985 Zoster Vaccines (1 of 2) 2016 COVID-19 Vaccine ( season) 2023 11/04/2021, 05/04/2021, 10/10/2020, Additional history exists Influenza Adult (#1) 2023 11/04/2021, 11/17/19 20 Meningococcal B Vaccine Aged Out No l onger eligible based on patient's age to complete this topic Meningococcal Vaccine Aged Out No xavi jose eligible based on patient's age to complete this topic RSV Immunizations Under 20 Months Aged Out No longer eligible based on patient's age to complete this topic Insurance [place] Care Teams Precise Winder Relationship Specialty Start Date End Date Michelle Gregory MD [address], [place] [address] PCP - General FAMILY PRACTICE 07/05/19
--- OUTSIDE RECORDS SUMMARY | 2024-04-02 11:36 | XMS_ITS | Referral Summary ---
Author Organization [facility] Address [address] [place] [address] Care Team Providers Care Occupational Safety And Health Manager Name Role Phone Vik Lindquist MD Primary Care Provider Source Comments [facility],non-owned Affiliates and Associated Physician Practices is amultiple site organization consisting of ambulatory clinics and hospital sitesin [place], [place], [place] and [place]. This disclosure is being madepursuant to the Care Everywhere program and may not contain all information available regarding this patient. Last updated 17.[facility] Allergies No known active allergies Medications * [...] Comments Blood Pressure 135/89 12/24/2022 8:12 AM LEARNING AND DEVELOPMENT ANALYST Pulse 89 12/24/2022 9:45 AM LEARNING AND DEVELOPMENT ANALYST Temperature 36.4 C (97.5 F) 12/24/2022 8:12 AM LEARNING AND DEVELOPMENT ANALYST Respiratory Rate 16 12/24/2022 9:45 AM LEARNING AND DEVELOPMENT ANALYST Oxygen Saturation 100% 12/24/2022 9:45 AM LEARNING AND DEVELOPMENT ANALYST Inhaled Oxygen Concentration - - Weight 105.5 kg (232 lb 8 oz) 12/21/2022 5:00 PM LEARNING AND DEVELOPMENT ANALYST Height 167.6 cm (5' 6 ) 12/21/2022 5:00 PM LEARNING AND DEVELOPMENT ANALYST Body Mass Index 37.53 12/21/2022 5:00 PM LEARNING AND DEVELOPMENT ANALYST Functional Status Functional Status Response Date of Assess ment Is person deaf or have serious hearing difficult y? No 12/21/2022 Is person blind or have serious difficulty seein g? No 12/21/2022 Does person have serious dif ficulty walking/climbing stairs? Yes 12/21/2022 Does person have difficulty dressing/bathing? No 12/21/2022 Does person have difficulty doing errands alone? No 12/21/2022 Cognitive Status Response Date of Assessm ent Does person have difficulty concentrating/remembering/making decisions? No 12/21/2022 Plan of Treatment Not on file Procedures Procedure Name Priority Date/Time Associated Diagnosis Comments GLUCOSE - POINT OF CARE Routine 12/24/2022 11:38 AM LEARNING AND DEVELOPMENT ANALYST from Last 3 Months or Most Recently Relevant to Health Maintenance Results * (ABNORMAL) GLUCOSE - POINT OF CARE (12/24/2022 11:38 AM LEARNING AND DEVELOPMENT ANALYST) Glucose WB/POC 210(H) 70 - 106 mg/dL 12/24/2022 11:44 AM LEARNING AND DEVELOPMENT ANALYST [facility] Specimen Type Cap Fingerstick 2022 11:44 AM LEARNING AND DEVELOPMENT ANALYST [facility] Blood BLOOD SPECIMEN / Unknown 12/24/2022 11:38 AM LEARNING AND DEVELOPMENT ANALYST 12/24/2022 11:44 AM LEARNING AND DEVELOPMENT ANALYST Perla Louis MD LAB - POINT OF CARE ORDERABLES [facility] [address] [place] [place], [place] [id number] from Last 3 Months or Most Recently Relevant to Health Maintenance Advance Directives * Full Code (Latest Code Status on File) Date Activated Date Inactivated Comments 12/21/2022 5:31 PM 12/24/2022 1:19 PM Care Teams Occupational Safety And Health Manager Relationship Specialty Start Date End Date Vik Lindquist MD [address] [place] [phone] PCP - General 04/13/22
--- OUTSIDE RECORDS SUMMARY | 2024-04-02 11:36 | XMS_ITS | Clinical Summary ---
Author Organization [facility] Address [address] [place] [address] Care Team Providers Care Talent Development Coordinator Name Role Phone Vik Lindquist MD Primary Care Provider [phone] Allergies No known active allergies Medications citalopram (CeleXA) 20 mg tablet Take 20 mg by mouth daily. 0 Active diltiaZEM (TIAZAC) 420 mg Extended Release capsule Take 420 mg by mouth daily. 2 Active glimepiride (AMARYL) 2 mg tablet TK ONE HALF OF A T PO BID 0 Active lactulose (ENULOSE) 10 gram/15 mL 10 gram/15 mL solution TK 15ML PO BID 0 Active metFORMIN (GLUCOPHAGE) 1,000 mg tablet 0 Active pantoprazole (PROTONIX) 40 mg Tablet, Delayed Release (E.C.) Take 40 mg by mouth daily. 0 Active warfarin (COUMADIN) 5 mg tablet 2 Active albuterol sulfate HFA 90 mcg/actuation aerosol inhaler Take 2 Puffs by inhalation every 6 hours as needed for Shortness of Breath. Active lisinopriL (PRINIVIL) 40 mg tablet Take 40 mg by mouth daily. Active umeclidinium (INCRUSE ELLIPTA) 62.5 mcg/actuation Disk with Device Take by inhalation. Active Active Problems No known active problems Family History Medical History Relation Name Comments Diabetes Brother Diabetes Sister Relation Name Status Comments Brother Alive Father Mother Sister Alive Social History Tobacco Use Types Packs/Day Years Used Date Smoking Tobacco: Every Day Cigarettes 0.5 35 Smokeless Tobacco: Never Tobacco Cessation:Ready to Q uit: Not Asked; Counseling Given: Not Answered Alcohol Use Standard Drinks/Week Comments Not Currently 0 (1 standard drink = 0.6 oz pur e alcohol) Sex and Gender Information Value Date Recorded Sex Assigned at Not on file Legal Sex Male 3:39 PM 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 Gender Identity Not on file Sexual Orientation Not on file Last Filed Vital Signs Vital Sign Reading Time Taken Comments Blood Pressure 123/87 05/21/2022 11:23 AM CDT Pulse 66 05/21/2022 11:23 AM CDT Temperature 36.2 C (97.2 F) 05/21/2022 11:23 AM CDT Respiratory Rate 10 05/21/2022 11:2 3 AM CDT Oxygen Saturation 98% 05/21/2022 11: 23 AM CDT Inhaled Oxygen Concentration - - Weight 114.9 kg (253 lb 6.4 oz) 023 11:23 AM CDT Height 170.7 cm (5' 7.2 ) 04/08/2022 10 :19 AM 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 Body Mass Index 39.45 04/08/2022 10:19 AM 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 Plan of Treatment Health Maintenance Due Date Last Done Comments DTAP/TDAP/TD VACCINES (1 - Tdap) 1985 HEPATITIS B VACCINES (1 of 3 - 19+ 3-dose series) 10/09 COLORECTAL SCREENING 10/29/2011 Colorectal Cancer Screening 10/29/2011 FIT-DNA Q 3 years 10/29/2011 FIT/FOBT Q 1 year 10/29/2011 Flex Sig/CT Colonography Q 5 years 10/29/2011 ZOSTER VACCINE (1 of 2) 2016 INFLUENZA VACCINE (#1) 2023 11/17/2019 Insurance [facility] MEDICA[facility] Care Teams Talent Development Coordinator Relationship Specialty Start Date End Date Vik Lindquist MD [address] [place] [phone] PCP - General Family Practice 04/08/22
== END 2024-04-02 10:19 | disposition home or self-care (01) ==
PROVIDERS: PCP Nurse Practitioner Family; Visit Provider Physician Assistant
DX: Z12.2 Encounter for screening for malignant neoplasm of respiratory organs (principal); Z87.891 Personal history of nicotine dependence
CPT/HCPCS: 71271

== ENCOUNTER 2024-05-18 09:55 | Outpatient (RCR) | payer OTHER, SELFPAY ==
[2024-03-06 10:48] LABS: INR 1.7; Prothrombin Time 20.4 Seconds (11.1-14.7)
[2024-03-15 11:27] LABS: INR 2.1; Prothrombin Time 24.5 Seconds (11.1-14.7)
[2024-05-18 10:48] LABS: INR 2.6; Prothrombin Time 28.6 Seconds (11.1-14.7)
== END 2024-06-04 23:59 | disposition home or self-care (01) ==
LOC: ANHLAB 09:55
PROVIDERS: PCP Nurse Practitioner Family; Visit Provider Internal Medicine Cardiovascular Disease
DX: J44.9 Chronic obstructive pulmonary disease, unspecified (principal); I48.91 Unspecified atrial fibrillation; Z79.01 Long term (current) use of anticoagulants
CPT/HCPCS: 36415; 85610

== ENCOUNTER 2024-08-29 11:37 | Outpatient (RCR) | payer OTHER, SELFPAY ==
[2024-06-12 13:43] LABS: INR 2.9; Prothrombin Time 30.9 Seconds (11.1-14.7)
[2024-06-25 15:22] LABS: INR 2.4; Prothrombin Time 27.2 Seconds (11.1-14.7)
[2024-08-29 12:27] LABS: INR 3.1; Prothrombin Time 30.9 Seconds (11.1-14.7)
== END 2024-09-10 23:59 | disposition home or self-care (01) ==
LOC: ANHLAB 11:37
PROVIDERS: PCP Nurse Practitioner Family; Visit Provider Internal Medicine Cardiovascular Disease
DX: J44.9 Chronic obstructive pulmonary disease, unspecified (principal)
CPT/HCPCS: 36415; 85610

== ENCOUNTER 2024-11-15 09:51 | Outpatient (RCR) | payer OTHER, SELFPAY ==
[2024-10-12 13:38] LABS: INR 2.5; Prothrombin Time 26.1 Seconds (11.1-14.7)
[2024-11-05 13:02] LABS: INR 4.4; Prothrombin Time 40.0 Seconds (11.1-14.7)
[2024-11-15 11:08] LABS: INR 2.2; Prothrombin Time 24.2 Seconds (11.1-14.7)
== END 2024-12-27 11:17 | disposition home or self-care (01) ==
LOC: ANHLAB 09:51
PROVIDERS: PCP Nurse Practitioner Family; Visit Provider Internal Medicine Cardiovascular Disease
DX: I48.91 Unspecified atrial fibrillation (principal)
CPT/HCPCS: 36415; 85610